=== PATIENT | male | born 1965 | race Caucasian/White ===

== ENCOUNTER 2023-09-19 12:32 | Emergency (ER) | payer OTHER, SELFPAY ==
[2023-09-19 13:13] VITALS: BP 174/102; PULSE 68; TEMP 36.9; O2SAT 100; BMI 28.1
--- NOTE | 2023-09-19 17:19 | ED_ITS ---
HPI HPI - General Adult General Chief complaint: Recheck/Abnormal Lab/Rx Stated complaint: HIGH BLOOD PRESSURE Time Seen by Provider: 09/19/23 16:30 Source: patient Mode of arrival: walk-in History of Present Illness HPI narrative: Patient is a 58-year-old male who is presenting to the ER today with chief complaint of needing a medication refill of his lisinopril 20 mg.Patient was given almost a year prescription back in August of last year lisinopril 20 mg, 1 tablet Once a day and also metoprolol 50 mg,1 tablet once a day. Patient is here for medication refill because he cannot get his medication refilled or prescribed by anybody. Patient PCP was Dr. Jimenez.Patient says that Dr. Jimenez in the last year moved his practice to [place] and patient cannot go see him in [place].Patient is very upset with Dr. Jimenez also stating that he left his practice with no warning and no information.Patient has had multiple refills of his blood pressure medication.However patient has run out of his lisinopril 2 0 mg a month ago.Patient still has 7 days left of his [id number] mg tablet prescription.Patient says that he went to Dr. Callejas's office today trying to establish care since they have had his paperwork for the past 2 weeks and not reached out to him.When he was in the office, they stated that they would give him a call in a few hours.They did call him and stated that they cannot see the patient with his insurance.Patient has had a year to Who is next PCP would be.Patient has not done so until now. Patient was not aware he could see the health department. Patient states he has intermittent headaches which he relates to blood pressure. Patient's headache was not the worse headache of her life, not sudden onset, not thunderclap in nature. He is not having any chest pain, shortness of breath, or syncopal episodes. Patient does not want any testing done, he just wants a prescription for his lisinopril 20 mg.Patient does not want any CAT scan of the brain, lab work done, EKGs.Patient has a functional decision-making capacity to refuse any other care, he just wants a prescription for his blood pressure medication. Patient is that this is not appropriate to come to the ER For medication refills, he brought this to multiple himself, But he does not know what else to do to get his refills since nobody also given to them. All systems are negative except as noted/marked. All systems reviewed and otherwise negative. Nurses note and vital signs reviewed and patient is not hypoxic. General: The patient appears well and in no apparent distress. Patient is resting comfortably on cart. Patient is not toxic, lethargic, or listless Skin: Warm, dry, no pallor noted. There is no rash noted. No petechiae, purpura. Head: Normocephalic, atraumatic, No tenderness to palpation to bilateral frontal maxillary sinus.No tenderness to palpation to midline or paracervical soft tissue, full range of motion of cervical spine no difficulty. No meningeal signs or symptoms. Eye: Normal conjunctiva, no drainage, EOMI. PERRL Ears, Nose, Mouth, and Throat: oral mucosa is moist. Nares patent. Mouth without vesicles. Cardiovascular: Regular Rate and Rhythm, no murmur, gallop, rub Respiratory: Patient is in no distress, no accessory muscle use, lungs are clear to auscultation, no wheezing, rales or rhonchi Back: non-tender, no CVA tenderness bilaterally to percussion. No CT LS midline pain GI: no tenderness No pulsatile mass. Musculoskeletal: Patient has full range of motion of all of the extremities, no motor, sensory, or focal neurological deficits Neurological: A&O x4, normal speech Psychiatric: Cooperative; Agitated secondary to his situation that he is run out of blood pressure medication. Related Data Home Medications ?Medication ?Instructions ?Recorded ?Confirmed lisinopril 20 mg tablet 20 mg PO DAILY 09/19/23 09/19/23 metoprolol succinate 50 mg 50 mg PO DAILY 09/19/23 09/19/23 tablet,extended release 24 hr Allergies Allergy/AdvReac Type Severity Reaction Status Date / Time No Known Drug Allergies Allergy Verified 09/19/23 13:19 Opioid HPI Opioid Management Most Recent Opioid Data: No Data to Display Exam Constitutional Vital Signs, click to edit/add: Last Vital Signs Temp 98.5 F 09/19/23 13:13 Pulse 68 09/19/23 13:13 Resp 16 09/19/23 13:13 BP 174/102 H 09/19/23 13:13 Pulse Ox 100 09/19/23 13:13 O2 Del Method Room Air 09/19/23 13:13 Course Vital Signs Vital signs: Vital Signs Temperature 98.5 F 09/19/23 13:13 Pulse Rate 68 09/19/23 13:13 Respiratory Rate 16 09/19/23 13:13 Blood Pressure 174/102 H 09/19/23 13:13 Pulse Oximetry 100 09/19/23 13:13 Oxygen Delivery Method Room Air 09/19/23 13:13 Temperature 98.5 F 09/19/23 13:13 Pulse Rate 68 09/19/23 13:13 Respiratory Rate 16 09/19/23 13:13 Blood Pressure 174/102 H 09/19/23 13:13 Pulse Oximetry 100 09/19/23 13:13 Oxygen Delivery Method Room Air 09/19/23 13:13 Medical Decision Making MDM Narrative Medical decision making narrative: Patient was given 20-day supply of his lisinopril 20 mg tablets, 1 tablet once a day and his metoprolol 50 mg tablets, 1 tablet once a day. Patient was educated to go to the health department in [place] to establish medical care.Patient was also told to call his insurance to see what 3 physicians in the local area will see him with his insurance. Patient says that he has [employer] [facility] insurance. Patient has no severe headache. No chest pain, shortness of breath, or syncopal episodes recently.Patient is refusing all care, medical screening evaluation was done.Patient wants no other testing, he just wants blood pressure medication refill and is very thankful for help. Discharge Plan Discharge Stand Alone Forms: Portal Instructions Chief Complaint: Recheck/Abnormal Lab/Rx Clinical Impression: Hypertension, uncontrolled, Medication refill Patient Disposition: Home, Self-Care Time of Disposition Decision: 17:09 Condition: Fair Prescriptions / Home Meds: No Action lisinopril 20 mg tablet 20 mg PO DAILY metoprolol succinate 50 mg tablet extended release 24 hr 50 mg PO DAILY Print Language: Turkish Instructions: Hypertension (ED), Medicine Refill (ED) Additional Instructions: Medication refill has been given to you for 20 days. Go to the health department to see if you qualify to be seen and evaluated by the health department in [facility]. Call your medical insurance to see what 3 physicians are in your plan so that you may go to their office to see if you can be seen evaluated and be a new patient in their office as well Referrals: Physician,Non-Staff, MD [Primary Care Provider] - 1 week Discharge Date/Time: 09/19/23 17:24
== END 2023-09-19 17:24 | disposition home or self-care (01) ==
PROVIDERS: Emergency Provider Emergency Medicine
DX: Z76.0 Encounter for issue of repeat prescription (principal); I10 Essential (primary) hypertension; Z79.899 Other long term (current) drug therapy
CPT/HCPCS: 99283

== ENCOUNTER 2024-03-29 08:48 | Outpatient (OUT) | payer OTHER, SELFPAY ==
--- NOTE | 2024-03-29 08:56 | US_ITS ---
The [address] [address] Patient Name: OSMAR RODRIGUEZ MRN: [id number] date: 1965 Sex: M Assigned Patient Location: [place] Current Patient Location: Accession/Order Number: [id number] Exam Date: 03/29/2024 08:57 Report Date: 03/29/2024 09:23 At the request of: NON-STAFF PHYSICIAN Procedure: US chest EXAM: US chest HISTORY: Lump COMPARISON: None. TECHNIQUE: Real-time ultrasound imaging of the fat. Findings: Deep to the patient's palpable abnormality is a heterogeneous 12.4 x 1.7 x 10.7 cm lesion. No significant blood flow. US/US chest IMPRESSION: 1. Sonographic findings suggest a possible lipoma. If clinical findings are not consistent with a lipoma or there has been rapid increase in size or new pain in this area, recommend further characterization with MR without and with intravenous contrast. Electronically authenticated by: CHEIKH LOPEZ Date: 03/29/2024 09:23
--- OUTSIDE RECORDS SUMMARY | 2024-03-29 09:04 | XMS_ITS | CCD ---
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 Name Role Phone HOUSE, DR LIMON Primary Care Unavailable CORTES, DR GALILEA Coppola Admitting Unavailabl e REINECK, DR GALILEA Coppola Attending Unavailabl e HANSECK, DR GALILEA Coppola Consulting Unavailabl e HOUSE, DR LIMON Admitting Unavailable HOUSE, DR LIMON Attending Unavailable HOUSE, DR LIMON Primary Care Unavailable HOUSE, DR LIMON Consulting Unavailable GOLDIE, IVAN Primary Care Unavailable Problems Problem Classification Problem Date Documented Da te Episodic/Chronic Fluid and electrolyte disorders (1 source) Volume depletion, unspecified; Translations: [VOLUME DEPLETION UNSPECIFIED] Onset: 04-27-2022 Episodic Other aftercare (1 source) 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; Translations: [OTH MCC CURRENT DRUG THERAPY] Onset: 04-27-2022 Episodic Other gastrointestinal disorders (1 source) Diarrhea, unspecified; Translations: [DIARRHEA UNSPECIFIED] Onset: 04-27-2022 Episodic Screening and history of mental health and substance abuse codes (1 source) Personal history of nicotine dependence; Translations: [PERSONAL HISTORY OF NICOTINE DEPEND] Onset: 04-27-2022 Episodic Syncope (3 sources) Syncope and collapse; Translations: [SYNCOPE AND COLLAPSE] Onset: 04-24-2022 Episodic Results Test Name Value Interpretation Reference Range Facil ity CBC AUTO DIFFon 05-12-2022 BASO # 0.1 103/ul Normal 0.0-0.1 [facility] Comment on above: Performed By: #### C BC #### [facility] [address] [address] [address] Rosi Delacruz Basophils/100 WBC (Bld) 0.8 % Normal 0.2-2.0 [facility] Comment on above: Performed By: #### C BC #### [facility] [address] [place], [place] [address] Dr. Rosi Delacruz EO # 0.2 103/ul Normal 0.0-0.7 [facility] Comment on above: Performed By: #### C BC #### [facility] [address] [place] [address] Dr. Rosi Delacruz Eosinophils/100 WBC (Bld) 2.4 % Normal 0.9-7.0 [facility] Comment on above: Performed By: #### C BC #### [facility] [address] [place] [address] Dr. Rosi Delacruz Erythrocyte distribution width (RBC) [Ratio] 13.2 % Normal 11.0-15.0 [facility] Comment on above: Performed By: #### C BC #### [facility] [address] [place] [address] Dr. Rosi Delacruz Hematocrit (Bld) [Volume fraction] 43.4 % Normal 42.0-54.0 [facility] Comment on above: Performed By: #### C BC #### [facility] [address] [place] [address] Dr. Rosi Delacruz Hemoglobin (Bld) [Mass/Vol] 14.0 g/dL Normal 14.0-18.0 [facility] Comment on above: Performed By: #### C BC #### [facility] [address] [place] [address] Dr. Rosi Delacruz IG # 0.02 10e3/ul Normal 0.00-0.03 [facility] Comment on above: Performed By: #### C BC #### [facility] [address] [place] [address] Dr. Rosi Delacruz IG % 0.3 % Normal 0.0-0.5 [facility] Comment on above: Performed By: #### C BC #### [facility] [address] [place] [address] Dr. Rosi Delacruz LYMPH # 1.7 103/ul Normal 1.2-3.8 [facility] Comment on above: Performed By: #### C BC #### [facility] [address] [place] [address] Dr. Rosi Delacruz Lymphocytes/100 WBC (Bld) 27.3 % Normal 20.5-60.0 [facility] Comment on above: Performed By: #### C BC #### [facility] [address] [place] [address] Dr. Rosi Delacruz MANUAL DIFF REQ NO Normal [facility] Comment on above: Performed By: #### C BC #### [facility] [address] [place] [address] Dr. Rosi Delacruz MCH (RBC) [Entitic mass] 32.5 pg Normal 25.9-34.0 [facility] Comment on above: Performed By: #### C BC #### [facility] [address] [place] [address] Dr. Rosi Delacruz MCHC (RBC) [Mass/Vol] 32.3 g/dL Normal 29.9-35.2 [facility] Comment on above: Performed By: #### C BC #### [facility] [address] [place] [address] Dr. Rosi Delacruz MCV (RBC) [Entitic vol] 100.7 fL Critically high 80.0-94.0 [facility] Comment on above: Performed By: #### C BC #### [facility] [address] [place] [address] Dr. Rosi Delacruz MONO # 0.5 103/ul Normal 0.3-0.8 [facility] Comment on above: Performed By: #### C BC #### [facility] [address] [place] [address] Dr. Rosi Delacruz Monocytes/100 WBC (Bld) 7.6 % Normal 1.7-12.0 [facility] Comment on above: Performed By: #### C BC #### [facility] [address] [place] [address] Dr. Rosi Delacruz NEUT # 3.8 103/ul Normal 1.4-6.5 [facility] Comment on above: Performed By: #### C BC #### [facility] [address] [place] [address] Dr. Rosi Delacruz Neutrophils/100 WBC (Bld) 61.6 % Normal 43.0-75.0 [facility] Comment on above: Performed By: #### C BC #### [facility] [address] [address] [address] Rosi Delacruz Platelet mean volume (Bld) [Entitic vol] 11.2 fL Normal 9.5-13.5 [facility] Comment on above: Performed By: #### C BC #### [facility] [address] [place] [address] Dr. Rosi Delacruz PLT 198 103/ul Normal 150-450 [facility] Comment on above: Performed By: #### C BC #### [facility] [address] [address] [address] Rosi Delacruz RBC 4.31 106/ul Critically low 4.70-6.10 [facility] Comment on above: Performed By: #### C BC #### [facility] [address] [place] [address] Dr. Rosi Delacruz WBC 6.2 103/ul Normal 4.0-11.0 [facility] Comment on above: Performed By: #### C BC #### [facility] [address] [place] [address] Dr. Rosi Delacruz LIPID PROFILEon 05-12-2022 CHOL-HDL RATIO NORM SEE BELOW Normal [facility] Comment on above: Result Comment: 3.3 - 4.4 LOW RISK 4.4 - 7.1 AVERAGE RISK 7.1 - 11.0 MODERATE RISK >11.0 HIGH RISK Performed By: #### C MP, T4, LIPID, TSH #### [facility] [address] [place] [address] Dr. Rosi Delacruz Cholesterol [Mass/Vol] 171 mg/dL Normal <=200 [facility] Comment on above: Performed By: #### C MP, T4, LIPID, TSH #### [facility] [address] [place] [address] Dr. Rosi Delacruz Cholesterol in HDL [Mass/Vol] 37 mg/dL Critically low 40-60 [facility] Comment on above: Performed By: #### C MP, T4, LIPID, TSH #### [facility] [address] [address] [address] Rosi Delacruz Cholesterol in LDL [Mass/Vol] 106.0 mg/dL Normal [facility] Comment on above: Performed By: #### C MP, T4, LIPID, TSH #### [facility] [address] [address] [address] Rosi Delacruz Cholesterol.total/Ch olesterol in HDL [Mass ratio] 4.6 {ratio} Normal [facility] Comment on above: Performed By: #### C MP, T4, LIPID, TSH #### [facility] [address] [address] [address] Rosi Delacruz HDL NORMAL > or = 60 mg/dl - LOW CARDIOVASCULAR RISK <40 mg/dl - HIGH CARDIOVASCULAR RISK Normal [facility] Comment on above: Performed By: #### C MP, T4, LIPID, TSH #### [facility] [address] [place] [address] Dr. Rosi Delacruz LDL CALC NORMAL SEE BELOW Normal [facility] Comment on above: Result Comment: <100 mg/dl OPTIMAL 100 - 129 mg/dl NEAR OR ABOVE OPTIMAL 130 - 159 mg/dl BORDERLINE HIGH 160 - 189 mg/dl HIGH >190 mg/dl VERY HIGH Performed By: #### C MP, T4, LIPID, TSH #### [facility] [address] [place] [address] Dr. Rosi Delacruz Triglyceride [Mass/Vol] 140 mg/dL Normal <=150 [facility] Comment on above: Performed By: #### C MP, T4, LIPID, TSH #### [facility] [address] [place] [address] Dr. Rosi Delacruz VLDL CALC 28.0 mg/dL Normal [facility] Comment on above: Performed By: #### C MP, T4, LIPID, TSH #### [facility] [address] [address] [address] Rosi Delacruz PROF 14(COMP METB)on 023 Albumin [Mass/Vol] 3.8 g/dL Normal 3.4-5.0 [facility] Comment on above: Performed By: #### C MP, T4, LIPID, TSH #### [facility] [address] [address] [address] Rosi Delacruz Albumin/Globulin [Mass ratio] 1.2 {ratio} Normal [facility] Comment on above: Performed By: #### C MP, T4, LIPID, TSH #### [facility] [address] [address] [address] Rosi Delacruz ALP [Catalytic activity/Vol] 96 U/L Normal 46-116 [facility] Comment on above: Performed By: #### C MP, T4, LIPID, TSH #### [facility] [address] [address] [address] Rosi Delacruz ALT [Catalytic activity/Vol] 79 U/L Critically high 16-63 [facility] Comment on above: Performed By: #### C MP, T4, LIPID, TSH #### [facility] [address] [place] [address] Dr. Rosi Delacruz Anion gap [Moles/Vol] 14.4 mmol/L Normal [facility] Comment on above: Performed By: #### C MP, T4, LIPID, TSH #### [facility] [address] [address] [address] Rosi Delacruz AST [Catalytic activity/Vol] 29 U/L Normal 15-37 [facility] Comment on above: Performed By: #### C MP, T4, LIPID, TSH #### [facility] [address] [address] [address] Rosi Delacruz Bilirubin [Mass/Vol] 0.4 mg/dL Normal 0.2-1.0 [facility] Comment on above: Performed By: #### C MP, T4, LIPID, TSH #### [facility] [address] [address] [address] Rosi Delacruz Calcium [Mass/Vol] 8.7 mg/dL Normal 8.5-10.1 [facility] Comment on above: Performed By: #### C MP, T4, LIPID, TSH #### [facility] [address] [address] [address] Rosi Delacruz Chloride [Moles/Vol] 108 mmol/L Critically high 98-107 [facility] Comment on above: Performed By: #### C MP, T4, LIPID, TSH #### [facility] [address] [address] [address] Rosi Delacruz CO2 [Moles/Vol] 28.1 mmol/L Normal 21.0-32.0 [facility] Comment on above: Performed By: #### C MP, T4, LIPID, TSH #### [facility] [address] [place] [address] Dr. Rosi Delacruz Creatinine [Mass/Vol] 1.02 mg/dL Normal 0.70-1.30 [facility] Comment on above: Performed By: #### C MP, T4, LIPID, TSH #### [facility] [address] [place] [address] Dr. Rosi Delacruz EGFR-AF TUNISIAN >60 Normal >=60 [facility] Comment on above: Performed By: #### C MP, T4, LIPID, TSH #### [facility] [address] [place] [address] Dr. Rosi Delacruz EGFR-NON AF TUNISIAN >60 Normal >=60 [facility] Comment on above: Performed By: #### C MP, T4, LIPID, TSH #### [facility] [address] [place] [address] Dr. Rosi Delacruz Globulin (S) [Mass/Vol] 3.2 g/dL Normal [facility] Comment on above: Performed By: #### C MP, T4, LIPID, TSH #### [facility] [address] [place] [address] Dr. Rosi Delacruz Glucose [Mass/Vol] 113 mg/dL Critically high 74-106 [facility] Comment on above: Performed By: #### C MP, T4, LIPID, TSH #### [facility] [address] [place] [address] Dr. Rosi Delacruz Potassium [Moles/Vol] 4.5 mmol/L Normal 3.5-5.1 [facility] Comment on above: Performed By: #### C MP, T4, LIPID, TSH #### [facility] [address] [place] [address] Dr. Rosi Delacruz Protein [Mass/Vol] 7.0 g/dL Normal 6.4-8.2 [facility] Comment on above: Performed By: #### C MP, T4, LIPID, TSH #### [facility] [address] [place] [address] Dr. Rosi Delacruz Sodium [Moles/Vol] 146 mmol/L Critically high 136-145 [facility] Comment on above: Performed By: #### C MP, T4, LIPID, TSH #### [facility] [address] [place] [address] Dr. Rosi Delacruz Urea nitrogen [Mass/Vol] 17.0 mg/dL Normal 7.0-18.0 [facility] Comment on above: Performed By: #### C MP, T4, LIPID, TSH #### [facility] [address] [place] [address] Dr. Rosi Delacruz Urea nitrogen/Creatinine [Mass ratio] 16.7 mg/mg Normal [facility] Comment on above: Performed By: #### C MP, T4, LIPID, TSH #### [facility] [address] [place] [address] Dr. Rosi Delacruz T4on 05-12-2022 T4 [Mass/Vol] 8.20 ug/dL Normal 4.50-12.10 [facility] Comment on above: Performed By: #### C MP, HSTROPN, BNP #### [facility] [address] [place] [address] Dr. Rosi Delacruz TSHon 05-12-2022 TSH 2.270 uIU/mL Normal 0.358-3.740 [facility] Comment on above: Performed By: #### C MP, T4, LIPID, TSH #### [facility] [address] [place] [address] Dr. Rosi Delacruz BNPon 04-24-2022 Natriuretic peptide B (Bld) [Mass/Vol] 14.0 pg/mL Normal <=900.0 [facility] Comment on above: Performed By: #### C MP, HSTROPN, BNP #### [facility] [address] [place] [address] Dr. Rosi Delacruz CBC AUTO DIFFon 04-24-2022 BASO # 0.0 103/ul Normal 0.0-0.1 [facility] Comment on above: Performed By: #### C BC #### [facility] [address] [place] [address] Dr. Rosi Delacruz Basophils/100 WBC (Bld) 0.5 % Normal 0.2-2.0 [facility] Comment on above: Performed By: #### C BC #### [facility] [address] [place] [address] Dr. Rosi Delacruz EO # 0.0 103/ul Normal 0.0-0.7 [facility] Comment on above: Performed By: #### C BC #### [facility] [address] [place] [address] Dr. Rosi Delacruz Eosinophils/100 WBC (Bld) 0.2 % Critically low 0.9-7.0 [facility] Comment on above: Performed By: #### C BC #### [facility] [address] [place] [address] Dr. Rosi Delacruz Erythrocyte distribution width (RBC) [Ratio] 13.0 % Normal 11.0-15.0 [facility] Comment on above: Performed By: #### C BC #### [facility] [address] [place] [address] Dr. Rosi Delacruz Hematocrit (Bld) [Volume fraction] 46.1 % Normal 42.0-54.0 [facility] Comment on above: Performed By: #### C BC #### [facility] [address] [place] [address] Dr. Rosi Dleacruz Hemoglobin (Bld) [Mass/Vol] 15.9 g/dL Normal 14.0-18.0 [facility] Comment on above: Performed By: #### C BC #### [facility] [address] [place] [address] Dr. Rosi Delacruz IG # 0.01 10e3/ul Normal 0.00-0.03 [facility] Comment on above: Performed By: #### C BC #### [facility] [address] [place] [address] Dr. Rosi Delacruz IG % 0.2 % Normal 0.0-0.5 [facility] Comment on above: Performed By: #### C BC #### [facility] [address] [place] [address] Dr. Rosi Delacruz LYMPH # 0.9 103/ul Critically low 1.2-3.8 [facility] Comment on above: Performed By: #### C BC #### [facility] [address] [place] [address] Dr. Rosi Delacruz Lymphocytes/100 WBC (Bld) 21.9 % Normal 20.5-60.0 [facility] Comment on above: Performed By: #### C BC #### [facility] [address] [place] [address] Dr. Rosi Delacruz MANUAL DIFF REQ NO Normal [facility] Comment on above: Performed By: #### C BC #### [facility] [address] [place] [address] Dr. Rosi Delacruz MCH (RBC) [Entitic mass] 32.0 pg Normal 25.9-34.0 [facility] Comment on above: Performed By: #### C BC #### [facility] [address] [place] [address] Dr. Rosi Delacruz MCHC (RBC) [Mass/Vol] 34.5 g/dL Normal 29.9-35.2 [facility] Comment on above: Performed By: #### C BC #### [facility] [address] [place] [address] Dr. Rosi Delacruz MCV (RBC) [Entitic vol] 92.8 fL Normal 80.0-94.0 [facility] Comment on above: Performed By: #### C BC #### [facility] [address] [place] [address] Dr. Rosi Delacruz MONO # 0.5 103/ul Normal 0.3-0.8 [facility] Comment on above: Performed By: #### C BC #### [facility] [address] [place] [address] Dr. Rosi Delacruz Monocytes/100 WBC (Bld) 13.2 % Critically high 1.7-12.0 [facility] Comment on above: Performed By: #### C BC #### [facility] [address] [place] [address] Dr. Rosi Delacruz NEUT # 2.6 103/ul Normal 1.4-6.5 [facility] Comment on above: Performed By: #### C BC #### [facility] [address] [place] [address] Dr. Rosi Delacruz Neutrophils/100 WBC (Bld) 64.0 % Normal 43.0-75.0 [facility] Comment on above: Performed By: #### C BC #### [facility] [address] [place] [address] Dr. Rosi Delacruz Platelet mean volume (Bld) [Entitic vol] 11.5 fL Normal 9.5-13.5 [facility] Comment on above: Performed By: #### C BC #### [facility] [address] [place] [address] Dr. Rosi Delacruz PLT 160 103/ul Normal 150-450 [facility] Comment on above: Performed By: #### C BC #### [facility] [address] [place] [address] Dr. Rosi Delacruz RBC 4.97 106/ul Normal 4.70-6.10 [facility] Comment on above: Performed By: #### C BC #### [facility] [address] [place] [address] Dr. Rosi Delacruz WBC 4.0 103/ul Normal 4.0-11.0 [facility] Comment on above: Performed By: #### C BC #### [facility] [address] [place] [address] Dr. Rosi Delacruz D-DIMERon 04-24-2022 D-DIMER <0.19 Normal <=0.59 [facility] Comment on above: Performed By: #### D DIM #### [facility] [address] [place] [address] Dr. Rosi Delacruz D-DIMER COMMENTS SEE BELOW Normal [facility] Comment on above: Result Comment: Incr eases in D-Dimer concentration observed with thromboembolic events can be variable due to localization, size, and age of the thrombus. Therefore, a thromboembolic event cannot be diagnosed with certainty on the basis of the reference range. D-Dimers may also be elevated for a variety of disorders including: advanced age, , coronary disease, cancer, liver disease, infection, inflammation, hematoma, DIC, trauma, post-surgery, diabetes, thrombolytic or anticoagulant therapy, stress, and generalized hospitalization. Performed By: #### D DIM #### [facility] [address] [place] [address] Dr. Rosi Delacruz LACTATE/LACTIC ACIDon 2022 Lactate [Moles/Vol] 1.7 mmol/L Normal 0.4-1.9 [facility] Comment on above: Performed By: #### C MP, HSTROPN, BNP #### [facility] [address] [place] [address] Dr. Rosi Delacruz PROF 14(COMP METB)on 023 Albumin [Mass/Vol] 4.1 g/dL Normal 3.4-5.0 [facility] Comment on above: Performed By: #### C MP, HSTROPN, BNP #### [facility] [address] [place] [address] Dr. Rosi Delacruz Albumin/Globulin [Mass ratio] 1.2 {ratio} Normal [facility] Comment on above: Performed By: #### C MP, HSTROPN, BNP #### [facility] [address] [place] [address] Dr. Rosi Delacruz ALP [Catalytic activity/Vol] 96 U/L Normal 46-116 [facility] Comment on above: Performed By: #### C MP, HSTROPN, BNP #### [facility] [address] [place] [address] Dr. Rosi Delacruz ALT [Catalytic activity/Vol] 75 U/L Critically high 16-63 [facility] Comment on above: Performed By: #### C MP, HSTROPN, BNP #### [facility] [address] [address] [address] Rosi Delacruz Anion gap [Moles/Vol] 14.8 mmol/L Normal [facility] Comment on above: Performed By: #### C MP, HSTROPN, BNP #### [facility] [address] [address] [address] Rosi Delacruz AST [Catalytic activity/Vol] 39 U/L Critically high 15-37 [facility] Comment on above: Performed By: #### C MP, HSTROPN, BNP #### [facility] [address] [address] [address] Rosi Delacruz Bilirubin [Mass/Vol] 0.5 mg/dL Normal 0.2-1.0 [facility] Comment on above: Performed By: #### C MP, HSTROPN, BNP #### [facility] [address] [place] [address] Dr. Rosi Delacruz Calcium [Mass/Vol] 8.9 mg/dL Normal 8.5-10.1 [facility] Comment on above: Performed By: #### C MP, HSTROPN, BNP #### [facility] [address] [address] [address] Rosi Delarcuz Chloride [Moles/Vol] 103 mmol/L Normal 98-107 [facility] Comment on above: Performed By: #### C MP, HSTROPN, BNP #### [facility] [address] [address] [address] Rosi Delacruz CO2 [Moles/Vol] 25.0 mmol/L Normal 21.0-32.0 [facility] Comment on above: Performed By: #### C MP, HSTROPN, BNP #### [facility] [address] [address] [address] Rosi Delacruz Creatinine [Mass/Vol] 1.25 mg/dL Normal 0.70-1.30 [facility] Comment on above: Performed By: #### C MP, HSTROPN, BNP #### [facility] [address] [address] [address] Rosi Delacruz EGFR-AF TUNISIAN >60 Normal >=60 [facility] Comment on above: Performed By: #### C MP, HSTROPN, BNP #### [facility] [address] [place] [address] Dr. Rosi Delacruz EGFR-NON AF TUNISIAN 60 mL/min/1.73m2 Normal >=60 [facility] Comment on above: Performed By: #### C MP, HSTROPN, BNP #### [facility] [address] [place] [address] Dr. Rosi Delacruz Globulin (S) [Mass/Vol] 3.4 g/dL Normal [facility] Comment on above: Performed By: #### C MP, HSTROPN, BNP #### [facility] [address] [place] [address] Dr. Rosi Delacruz Glucose [Mass/Vol] 151 mg/dL Critically high 74-106 [facility] Comment on above: Performed By: #### C MP, HSTROPN, BNP #### [facility] [address] [place] [address] Dr. Rosi Delacruz Potassium [Moles/Vol] 3.8 mmol/L Normal 3.5-5.1 [facility] Comment on above: Performed By: #### C MP, HSTROPN, BNP #### [facility] [address] [place] [address] Dr. Rosi Delacruz Protein [Mass/Vol] 7.5 g/dL Normal 6.4-8.2 [facility] Comment on above: Performed By: #### C MP, HSTROPN, BNP #### [facility] [address] [place] [address] Dr. Rosi Delacruz Sodium [Moles/Vol] 139 mmol/L Normal 136-145 [facility] Comment on above: Performed By: #### C MP, HSTROPN, BNP #### [facility] [address] [place] [address] Dr. Rosi Delacruz Urea nitrogen [Mass/Vol] 22.0 mg/dL Critically high 7.0-18.0 [facility] Comment on above: Performed By: #### C MP, HSTROPN, BNP #### [facility] [address], [place] [address] Dr. Rosi Delacruz Urea nitrogen/Creatinine [Mass ratio] 17.6 mg/mg Normal [facility] Comment on above: Performed By: #### C MP, HSTROPN, BNP #### [facility] [address], [place] [address] Dr. Rosi Delacruz TROPONIN, HIGH SENSITIVITYon 04-24-2022 HSTROP 8.5 pg/mL Normal 4.0-76.1 [facility] Comment on above: Result Comment: CUT- OFF POINTS HAVE BEEN ESTABLISHED BASED ON THE FOURTH UNIVERSAL DEFINITIONS OF MYOCARDIAL INFARCTION. THE UPPER REFERENCE LIMIT (URL) OF TROPONIN, DEFINED THE 99TH PERCENTILE OF cTnI DISTRIBUTION IN A REFERENCE POPULATION, HAS BEEN CONFIRMED THE DECISION THRESHOLD FOR IA DIAGNOSIS. Performed By: #### C MP, HSTROPN, BNP #### [facility] [address] [address] [address] Rosi Delacruz Encounters Encounter Date Encounter Type Care Provider Facility Start: 03-22-2024 [facility] Start: 05-15-2022 Encounter for genera l adult medical examination without abnormal findings DR BRAXTON BOWLES [facility] Start: 05-12-2022 End: 05-13-[address] BRAXTON BOWLES Facility:[facility] Start: 05-12-2022 End: 05-13-2022 Encounter for general adult medical examination without abnormal findings DR BRAXTON BOWLES Facility:[facility] Start: 04-24-2022 End: 04-24-[address] BRAXTON BOWLES Facility:[facility] Procedures Date Procedure Procedure Detail Performing Clinician Start: 05-12-[address] RICARDO BOWLES Comment on above: Performed By: #### P SAD #### [facility] [id number] Rosi Delacruz Payers Date Payer Category Payer Unknown [id number] 1965 Unknown [id number] 1957 Unknown [id number] Summary Purpose Family History No Family History Records FoundNo Family History Records Found Advance Directives No Advanced Directives Records FoundNo Advanced Directives Records Found Additional Source Comments (unrecognized sect ion and content) No Status Records FoundNo Status Records Found INFORMATION SOURCE (unrecogn ized section and content) DATE CREATED AUTHOR 05/20/2022 [facility] DATE CREATED AUTHOR AUTHOR'S ORGANIZ ATION 03/25/2024 [facility] FOR RECORDS PERTAINING TO PATIENTS WHO ARE OR HAVE BEEN ENROLLED IN A CHEMICAL DEPENDENCY/SUBSTANCEABUSE PROGRAM, SOME INFORMATION MAY BE OMITTED. This clinical summary was aggregated from multiple sources. Caution should be exercised in using it in the provision of clinical care. This summary normalizes information from multiple sources, and as a consequence, information in this document may materially change the coding, format and clinical context of patient data. In addition, data may be omitted in some cases. CLINICAL DECISIONS SHOULD BE BASED ON THE PRIMARY CLINICAL RECORDS. [facility] [employer] [facility] provides no warranty or guarantee of the accuracy or completeness of information in this document.
== END 2024-03-29 08:49 | disposition home or self-care (01) ==
LOC: US 08:50
DX: R22.9 Localized swelling, mass and lump, unspecified (principal)
CPT/HCPCS: 76604

== ENCOUNTER 2024-05-04 07:50 | Outpatient (OUT) | payer OTHER, SELFPAY ==
--- OUTSIDE RECORDS SUMMARY | 2024-05-04 07:55 | XMS_ITS | CCD ---
Author Organization [facility] Care Team Providers Care Dress Finisher Name Role Phone HOUSE, DR LIMON Primary Care Unavailable REINECK, DR GALILEA Coppola Admitting Unavailabl e REINECK, DR GALILEA Coppola Attending Unavailabl e REINECK, DR GALILEA Coppola Consulting Unavailabl e HOUSE, DR LIMON Admitting Unavailable HOUSE, DR LIMON Attending Unavailable HOUSE, DR LIMON Primary Care Unavailable HOUSE, DR LIMON Consulting Unavailable GOLDIE, IVAN Primary Care Physician G[facility], [facility] Primary Care Unavailable GOLDIE, [facility] Referring Unavailable NILL, Alo Cox Attending Unavailable GOLDIE, [facility] Primary Care Unavailable Allergies Allergy Classification Reported Allergen(s) Allergy Type Date of Onset Reaction(s) Facility (1 source) No Known Medication Allergies; Translations: [No Known Medication Allergies] Propensity to adverse reactions (disorder) [facility] Repository Medications Current Medications Medication Drug Class(es) Dates Sig (Normalized) Sig (Original) lisinopril 20 mg oral tablet (1 source) Angiotensin Converting Enzyme Inhibitor Start: 09-19-2023 take 1 tablet by mouth once daily lisinopril 20 mg Tab 20 mg = 1 tab(s), Oral, Daily, Refills(s) 0 Start Date: 09/19/23 Status: Ordered 24 hr metoprolol succinate 50 mg extended release oral tablet (1 source) beta-Adrenergic Divya Start: 09-19-2023 take 1 tablet by mouth once daily metoprolol succinate 50 mg ER Tab 50 mg = 1 tab(s), Oral, Daily, Refills(s) 0 Start Date: 09/19/23 Status: Ordered Problems Problem Classification Problem Date Documented Da te Episodic/Chronic Essential hypertension (1 source) Hypertensive disorder 04-16-2024 Chronic Fluid and electrolyte disorders (1 source) Volume depletion, unspecified; Translations: [VOLUME DEPLETION UNSPECIFIED] Onset: 04-27-2022 Episodic Other aftercare (1 source) Other jail (current) drug therapy; Translations: [OTH ALF CURRENT DRUG THERAPY] Onset: 04-27-2022 Episodic Other and unspecified benign neoplasm (1 source) Lipoma of skin and subcutaneous tissue of trunk; Translations: [Benign lipomatous neoplasm of skin and subcutaneous tissue of trunk] Onset: 04-25-2024 Episodic Other and unspecified benign neoplasm (1 source) Lipoma of back 04-25-2024 Episodic Other gastrointestinal disorders (1 source) Diarrhea, unspecified; Translations: [DIARRHEA UNSPECIFIED] Onset: 04-27-2022 Episodic Other nutritional; endocrine; and metabolic disorders (1 source) Overweight 04-16-2024 Episodic Other nutritional; endocrine; and metabolic disorders (1 source) Overweight in adulthood with body mass index of 25 or more but less than 30 04-25-2024 Episodic Residual codes; unclassified (1 source) Pain, unspecified; Translations: [Pain, unspecified] Onset: 04-11-2024 Episodic Screening and history of mental health and substance abuse codes (1 source) Personal history of nicotine dependence; Translations: [PERSONAL HISTORY OF NICOTINE DEPEND] Onset: 04-27-2022 Episodic Syncope (3 sources) Syncope and collapse; Translations: [SYNCOPE AND COLLAPSE] Onset: 04-24-2022 Episodic Results Test Name Value Interpretation Reference Range Facil ity Ambulatory Visit Summaryon 0 04-25-2024 Ambulatory Visit Summary Ambulatory Visit Summary OSMAR RODRIGUEZ :1965 Visit Date:04/25/2024 Ambulatory Visit Instructions Your Diagnosis Lipoma of back Your Care Team Attending Physician - TENZIN MAGALLON, Alo Cox Primary Care Physician - IVAN WITT Referring Physician - IVAN WITT This Is Your Medications List Contact prescribing physician if questions or concerns lisinopril (lisinopril 20 mg Tab) metoprolol (metoprolol succinate 50 mg ER Tab) Procedures Performed Arthroscopy of shoulder, Cholecystectomy, Colonoscopy, Colonoscopy, Colonoscopy, Vasectomy. Discharge Vitals Heart Rate (Peripheral) 72 Respiratory Rate 16 Blood Pressure 142/90 Height 182.8 cm Height 72 in Weight 97.6 kg Weight 215.171 lb BMI 29.21 Medications What How Much When Instructions Unchanged lisinopril (lisinopril 20 mg Tab) 1 Tablets By Mouth Every day Contact prescribing physician if questions or concerns Unchanged metoprolol (metoprolol succinate 50 mg ER Tab) 1 Tablets By Mouth Every day Contact prescribing physician if questions or concerns Allergies No Known Allergies No Known Medication Allergies Problems Ongoing - Any problem that you are currently receiving treatment for. BMI 29.0-29.9,adult Hypertension Lipoma of back Overweight Patient Survey You may receive a survey via text or e-mail asking about your office visit. Please share your experience with us by completing your survey. We appreciate your feedback and thank you for choosing us for your care. [facility] Ambulatory Visit Summary Ambulatory Visit Summary OSMAR RODRIGUEZ :1965 Visit Date:04/25/2024 Ambulatory Visit Instructions Your Diagnosis Lipoma of back Your Care Team Attending Physician - TENZIN MAGALLON, Alo Cox Primary Care Physician - IVAN WITT Referring Physician - IVAN WITT This Is Your Medications List Contact prescribing physician if questions or concerns lisinopril (lisinopril 20 mg Tab) metoprolol (metoprolol succinate 50 mg ER Tab) Procedures Performed Arthroscopy of shoulder, Cholecystectomy, Colonoscopy, Colonoscopy, Colonoscopy, Vasectomy. Discharge Vitals Heart Rate (Peripheral) 72 Respiratory Rate 16 Blood Pressure 142/90 Height 182.8 cm Height 72 in Weight 97.6 kg Weight 215.171 lb BMI 29.21 Medications What How Much When Instructions Unchanged lisinopril (lisinopril 20 mg Tab) 1 Tablets By Mouth Every day Contact prescribing physician if questions or concerns Unchanged metoprolol (metoprolol succinate 50 mg ER Tab) 1 Tablets By Mouth Every day Contact prescribing physician if questions or concerns Allergies No Known Allergies No Known Medication Allergies Problems Ongoing - Any problem that you are currently receiving treatment for. BMI 29.0-29.9,adult Hypertension Lipoma of back Overweight Patient Survey You may receive a survey via text or e-mail asking about your office visit. Please share your experience with us by completing your survey. We appreciate your feedback and thank you for choosing us for your care. [facility] CBC AUTO DIFFon 05-12-2022 BASO # 0.1 103/ul Normal 0.0-0.1 [facility] Comment on above: Performed By: #### C BC #### [facility] [address] [place] [address] Dr. Rosi Delacruz Basophils/100 WBC (Bld) 0.8 % Normal 0.2-2.0 [facility] Comment on above: Performed By: #### C BC #### [facility] [address] [place] [address] Dr. Rosi Delacruz EO # 0.2 103/ul Normal 0.0-0.7 [facility] Comment on above: Performed By: #### C BC #### [facility] [address] [place] [address] Dr. Rosi Delacruz Eosinophils/100 WBC (Bld) 2.4 % Normal 0.9-7.0 [facility] Comment on above: Performed By: #### C BC #### [facility] [address] [place] [address] Dr. Rosi Delacruz Erythrocyte distribution width (RBC) [Ratio] 13.2 % Normal 11.0-15.0 [facility] Comment on above: Performed By: #### C BC #### [facility] [address] [place] [address] Dr. Rosi Delacruz Hematocrit (Bld) [Volume fraction] 43.4 % Normal 42.0-54.0 [facility] Comment on above: Performed By: #### C BC #### [facility] [address] [place] [address] Dr. Rosi Delacruz Hemoglobin (Bld) [Mass/Vol] 14.0 g/dL Normal 14.0-18.0 [facility] Comment on above: Performed By: #### C BC #### [facility] [address] [place] [address] Dr. Rosi Delacruz IG # 0.02 10e3/ul Normal 0.00-0.03 [facility] Comment on above: Performed By: #### C BC #### [facility] [address] [place] [address] Dr. Rosi Delacruz IG % 0.3 % Normal 0.0-0.5 [facility] Comment on above: Performed By: #### C BC #### [facility] [address] [address] [address] Rosi Delacruz LYMPH # 1.7 103/ul Normal 1.2-3.8 [facility] Comment on above: Performed By: #### C BC #### [facility] [address] [address] [address] Rosi Delacruz Lymphocytes/100 WBC (Bld) 27.3 % Normal 20.5-60.0 [facility] Comment on above: Performed By: #### C BC #### [facility] [address] [place] [address] Dr. Rosi Delacruz MANUAL DIFF REQ NO Normal [facility] Comment on above: Performed By: #### C BC #### [facility] [address] [place] [address] Dr. Rosi Delacruz MCH (RBC) [Entitic mass] 32.5 pg Normal 25.9-34.0 [facility] Comment on above: Performed By: #### C BC #### [facility] [address] [place] [address] Dr. Rosi Delacruz MCHC (RBC) [Mass/Vol] 32.3 g/dL Normal 29.9-35.2 [facility] Comment on above: Performed By: #### C BC #### [facility] [address] [place] [address] Dr. Rosi Delacruz MCV (RBC) [Entitic vol] 100.7 fL Critically high 80.0-94.0 [facility] Comment on above: Performed By: #### C BC #### [facility] [address] [place] [address] Dr. Rosi Delacruz MONO # 0.5 103/ul Normal 0.3-0.8 [facility] Comment on above: Performed By: #### C BC #### [facility] [address] [place] [address] Dr. Rosi Delacruz Monocytes/100 WBC (Bld) 7.6 % Normal 1.7-12.0 [facility] Comment on above: Performed By: #### C BC #### [facility] [address] [address] [address] Rosi Delacruz NEUT # 3.8 103/ul Normal 1.4-6.5 [facility] Comment on above: Performed By: #### C BC #### [facility] [address] [address] [address] Rosi Delacruz Neutrophils/100 WBC (Bld) 61.6 % Normal 43.0-75.0 [facility] Comment on above: Performed By: #### C BC #### [facility] [address] [address] [address] Rois Delacruz Platelet mean volume (Bld) [Entitic vol] 11.2 fL Normal 9.5-13.5 [facility] Comment on above: Performed By: #### C BC #### [facility] [address] [place] [address] Dr. Rosi Delacruz PLT 198 103/ul Normal 150-450 [facility] Comment on above: Performed By: #### C BC #### [facility] [address] [place] [address] Dr. Rosi Delacruz RBC 4.31 106/ul Critically low 4.70-6.10 [facility] Comment on above: Performed By: #### C BC #### [facility] [address] [place] [address] Dr. Rosi Delacruz WBC 6.2 103/ul Normal 4.0-11.0 [facility] Comment on above: Performed By: #### C BC #### [facility] [address] [place] [address] Dr. Rosi Delacruz LIPID PROFILEon 05-12-2022 CHOL-HDL RATIO NORM SEE BELOW Normal [facility] Comment on above: Result Comment: 3.3 - 4.4 LOW RISK 4.4 - 7.1 AVERAGE RISK 7.1 - 11.0 MODERATE RISK >11.0 HIGH RISK Performed By: #### C MP, T4, LIPID, TSH #### [facility] [address] [place] [address] Dr. Rosi Delacruz Cholesterol [Mass/Vol] 171 mg/dL Normal <=200 [facility] Comment on above: Performed By: #### C MP, T4, LIPID, TSH #### [facility] [address] [address] [address] Rosi Delacruz Cholesterol in HDL [Mass/Vol] 37 mg/dL Critically low 40-60 [facility] Comment on above: Performed By: #### C MP, T4, LIPID, TSH #### [facility] [address] [address] [address] Rosi Delacruz Cholesterol in LDL [Mass/Vol] 106.0 mg/dL Normal [facility] Comment on above: Performed By: #### C MP, T4, LIPID, TSH #### [facility] [address] [address] [address] Rosi Delacruz Cholesterol.total/Ch olesterol in HDL [Mass ratio] 4.6 {ratio} Normal [facility] Comment on above: Performed By: #### C MP, T4, LIPID, TSH #### [facility] [address] [address] [address] Rosi Delacruz HDL NORMAL > or = 60 mg/dl - LOW CARDIOVASCULAR RISK <40 mg/dl - HIGH CARDIOVASCULAR RISK Normal [facility] Comment on above: Performed By: #### C MP, T4, LIPID, TSH #### [facility] [address] [address] [address] Rosi Delacruz LDL CALC NORMAL SEE BELOW Normal [facility] Comment on above: Result Comment: <100 mg/dl OPTIMAL 100 - 129 mg/dl NEAR OR ABOVE OPTIMAL 130 - 159 mg/dl BORDERLINE HIGH 160 - 189 mg/dl HIGH >190 mg/dl VERY HIGH Performed By: #### C MP, T4, LIPID, TSH #### [facility] [address] [address] [address] Rosi Delacruz Triglyceride [Mass/Vol] 140 mg/dL Normal <=150 [facility] Comment on above: Performed By: #### C MP, T4, LIPID, TSH #### [facility] [address] [address] [address] Rosi Delacruz VLDL CALC 28.0 mg/dL Normal [facility] Comment on above: Performed By: #### C MP, T4, LIPID, TSH #### [facility] [address] [place] [address] Dr. Rosi Delacruz PROF 14(COMP METB)on 023 Albumin [Mass/Vol] 3.8 g/dL Normal 3.4-5.0 [facility] Comment on above: Performed By: #### C MP, T4, LIPID, TSH #### [facility] [address] [place] [address] Dr. Rosi Delacruz Albumin/Globulin [Mass ratio] 1.2 {ratio} Normal [facility] Comment on above: Performed By: #### C MP, T4, LIPID, TSH #### [facility] [address] [place] [address] Dr. Rosi Delacruz ALP [Catalytic activity/Vol] 96 U/L Normal 46-116 [facility] Comment on above: Performed By: #### C MP, T4, LIPID, TSH #### [facility] [address] [place] [address] Dr. Rosi Delacruz ALT [Catalytic activity/Vol] 79 U/L Critically high 16-63 [facility] Comment on above: Performed By: #### C MP, T4, LIPID, TSH #### [facility] [address] [place] [address] Dr. Rosi Delacruz Anion gap [Moles/Vol] 14.4 mmol/L Normal [facility] Comment on above: Performed By: #### C MP, T4, LIPID, TSH #### [facility] [address] [place] [address] Dr. Rosi Delacruz AST [Catalytic activity/Vol] 29 U/L Normal 15-37 [facility] Comment on above: Performed By: #### C MP, T4, LIPID, TSH #### [facility] [address] [place] [address] Dr. Rosi Delacruz Bilirubin [Mass/Vol] 0.4 mg/dL Normal 0.2-1.0 [facility] Comment on above: Performed By: #### C MP, T4, LIPID, TSH #### [facility] [address] [place] [address] Dr. Rosi Delacruz Calcium [Mass/Vol] 8.7 mg/dL Normal 8.5-10.1 [facility] Comment on above: Performed By: #### C MP, T4, LIPID, TSH #### [facility] [address] [address] [address] Rosi Delacruz Chloride [Moles/Vol] 108 mmol/L Critically high 98-107 [facility] Comment on above: Performed By: #### C MP, T4, LIPID, TSH #### [facility] [address] [place] [address] Dr. Rosi Delacruz CO2 [Moles/Vol] 28.1 mmol/L Normal 21.0-32.0 [facility] Comment on above: Performed By: #### C MP, T4, LIPID, TSH #### [facility] [address] [place] [address] Dr. Rosi Delacruz Creatinine [Mass/Vol] 1.02 mg/dL Normal 0.70-1.30 [facility] Comment on above: Performed By: #### C MP, T4, LIPID, TSH #### [facility] [address] [place] [address] Dr. Rosi Delacruz EGFR-AF AFGHAN >60 Normal >=60 [facility] Comment on above: Performed By: #### C MP, T4, LIPID, TSH #### [facility] [address] [place] [address] Dr. Rosi Delacruz EGFR-NON AF AFGHAN >60 Normal >=60 [facility] Comment on above: Performed By: #### C MP, T4, LIPID, TSH #### [facility] [address] [place] [address] Dr. Rosi Delacruz Globulin (S) [Mass/Vol] 3.2 g/dL Normal [facility] Comment on above: Performed By: #### C MP, T4, LIPID, TSH #### [facility] [address] [place] [address] Dr. Rosi Delacruz Glucose [Mass/Vol] 113 mg/dL Critically high 74-106 [facility] Comment on above: Performed By: #### C MP, T4, LIPID, TSH #### [facility] [address] [address] [address] Rosi Delacruz Potassium [Moles/Vol] 4.5 mmol/L Normal 3.5-5.1 [facility] Comment on above: Performed By: #### C MP, T4, LIPID, TSH #### [facility] [address] [place] [address] Dr. Rosi Delacruz Protein [Mass/Vol] 7.0 g/dL Normal 6.4-8.2 [facility] Comment on above: Performed By: #### C MP, T4, LIPID, TSH #### [facility] [address] [place] [address] Dr. Rosi Delacruz Sodium [Moles/Vol] 146 mmol/L Critically high 136-145 [facility] Comment on above: Performed By: #### C MP, T4, LIPID, TSH #### [facility] [address] [place] [address] Dr. Rosi Delacruz Urea nitrogen [Mass/Vol] 17.0 mg/dL Normal 7.0-18.0 [facility] Comment on above: Performed By: #### C MP, T4, LIPID, TSH #### [facility] [address] [place] [address] Dr. Rosi Delacruz Urea nitrogen/Creatinine [Mass ratio] 16.7 mg/mg Normal [facility] Comment on above: Performed By: #### C MP, T4, LIPID, TSH #### [facility] [address] [place] [address] Dr. Rosi Delacruz T4on 05-12-2022 T4 [Mass/Vol] 8.20 ug/dL Normal 4.50-12.10 [facility] Comment on above: Performed By: #### C MP, HSTROPN, BNP #### [facility] [address] [place] [address] Dr. Rosi Delacruz TSHon 05-12-2022 TSH 2.270 uIU/mL Normal 0.358-3.740 [facility] Comment on above: Performed By: #### C MP, T4, LIPID, TSH #### [facility] [address] [place] [address] Dr. Rosi Delacruz BNPon 04-24-2022 Natriuretic peptide B (Bld) [Mass/Vol] 14.0 pg/mL Normal <=900.0 [facility] Comment on above: Performed By: #### C MP, HSTROPN, BNP #### [facility] [address] [place] [address] Dr. Rosi Delacruz CBC AUTO DIFFon 04-24-2022 BASO # 0.0 103/ul Normal 0.0-0.1 [facility] Comment on above: Performed By: #### C BC #### [facility] [address] [place] [address] Dr. Rosi Delacruz Basophils/100 WBC (Bld) 0.5 % Normal 0.2-2.0 [facility] Comment on above: Performed By: #### C BC #### [facility] [address] [place] [address] Dr. Rosi Delacruz EO # 0.0 103/ul Normal 0.0-0.7 [facility] Comment on above: Performed By: #### C BC #### [facility] [address] [place] [address] Dr. Rosi Delacruz Eosinophils/100 WBC (Bld) 0.2 % Critically low 0.9-7.0 [facility] Comment on above: Performed By: #### C BC #### [facility] [address] [place] [address] Dr. Rosi Delacruz Erythrocyte distribution width (RBC) [Ratio] 13.0 % Normal 11.0-15.0 [facility] Comment on above: Performed By: #### C BC #### [facility] [address] [place] [address] Dr. Rosi Delacruz Hematocrit (Bld) [Volume fraction] 46.1 % Normal 42.0-54.0 [facility] Comment on above: Performed By: #### C BC #### [facility] [address] [place] [address] Dr. Rosi Delacruz Hemoglobin (Bld) [Mass/Vol] 15.9 g/dL Normal 14.0-18.0 [facility] Comment on above: Performed By: #### C BC #### [facility] [address] [place] [address] Dr. Rosi Delacruz IG # 0.01 10e3/ul Normal 0.00-0.03 [facility] Comment on above: Performed By: #### C BC #### [facility] [address] [place] [address] Dr. Rosi Delacruz IG % 0.2 % Normal 0.0-0.5 [facility] Comment on above: Performed By: #### C BC #### [facility] [address] [place] [address] Dr. Rosi Delacruz LYMPH # 0.9 103/ul Critically low 1.2-3.8 [facility] Comment on above: Performed By: #### C BC #### [facility] [address] [place] [address] Dr. Rosi Delacruz Lymphocytes/100 WBC (Bld) 21.9 % Normal 20.5-60.0 [facility] Comment on above: Performed By: #### C BC #### [facility] [address] [place] [address] Dr. Rosi Delacruz MANUAL DIFF REQ NO Normal [facility] Comment on above: Performed By: #### C BC #### [facility] [address] [place] [address] Dr. Rosi Delacruz MCH (RBC) [Entitic mass] 32.0 pg Normal 25.9-34.0 [facility] Comment on above: Performed By: #### C BC #### [facility] [address] [place] [address] Dr. Rosi Delacruz MCHC (RBC) [Mass/Vol] 34.5 g/dL Normal 29.9-35.2 [facility] Comment on above: Performed By: #### C BC #### [facility] [address] [place] [address] Dr. Rosi Delacruz MCV (RBC) [Entitic vol] 92.8 fL Normal 80.0-94.0 [facility] Comment on above: Performed By: #### C BC #### [facility] [address] [address] [address] Rosi Delacruz MONO # 0.5 103/ul Normal 0.3-0.8 [facility] Comment on above: Performed By: #### C BC #### [facility] [address] [address] [address] Rosi Delacruz Monocytes/100 WBC (Bld) 13.2 % Critically high 1.7-12.0 [facility] Comment on above: Performed By: #### C BC #### [facility] [address] [address] [address] Rosi Delacruz NEUT # 2.6 103/ul Normal 1.4-6.5 [facility] Comment on above: Performed By: #### C BC #### [facility] [address] [place] [address] Dr. Rosi Delacruz Neutrophils/100 WBC (Bld) 64.0 % Normal 43.0-75.0 [facility] Comment on above: Performed By: #### C BC #### [facility] [address] [place] [address] Dr. Rosi Delacruz Platelet mean volume (Bld) [Entitic vol] 11.5 fL Normal 9.5-13.5 [facility] Comment on above: Performed By: #### C BC #### [facility] [address] [place] [address] Dr. Rosi Delacruz PLT 160 103/ul Normal 150-450 [facility] Comment on above: Performed By: #### C BC #### [facility] [address] [place] [address] Dr. Rosi Delacruz RBC 4.97 106/ul Normal 4.70-6.10 [facility] Comment on above: Performed By: #### C BC #### [facility] [address] [place] [address] Dr. Rosi Delacruz WBC 4.0 103/ul Normal 4.0-11.0 [facility] Comment on above: Performed By: #### C BC #### [facility] [address] [place] [address] Dr. Rosi Delacruz D-DIMERon 04-24-2022 D-DIMER <0.19 Normal <=0.59 [facility] Comment on above: Performed By: #### D DIM #### [facility] [address] [place] [address] Dr. Rosi Delacruz D-DIMER COMMENTS SEE BELOW Normal [facility] Comment on above: Result Comment: Incr eases [...] hospitalization. Performed By: #### D DIM #### [facility] [address] [place] [address] Dr. Rosi Delacruz LACTATE/LACTIC ACIDon 2022 Lactate [Moles/Vol] 1.7 mmol/L Normal 0.4-1.9 [facility] Comment on above: Performed By: #### C MP, HSTROPN, BNP #### [facility] [address] [place] [address] Dr. Rosi Delacruz PROF 14(COMP METB)on 023 Albumin [Mass/Vol] 4.1 g/dL Normal 3.4-5.0 [facility] Comment on above: Performed By: #### C MP, HSTROPN, BNP #### [facility] [address] [place] [address] Dr. Rosi Delacruz Albumin/Globulin [Mass ratio] 1.2 {ratio} Normal [facility] Comment on above: Performed By: #### C MP, HSTROPN, BNP #### [facility] [address] [place] [address] Dr. Rosi Delacruz ALP [Catalytic activity/Vol] 96 U/L Normal 46-116 [facility] Comment on above: Performed By: #### C MP, HSTROPN, BNP #### [facility] [address] [address] [address] Rosi Delacruz ALT [Catalytic activity/Vol] 75 U/L Critically high 16-63 [facility] Comment on above: Performed By: #### C MP, HSTROPN, BNP #### [facility] [address] [place] [address] Dr. Rosi Delacruz Anion gap [Moles/Vol] 14.8 mmol/L Normal [facility] Comment on above: Performed By: #### C MP, HSTROPN, BNP #### [facility] [address] [address] [address] Rosi Delacruz AST [Catalytic activity/Vol] 39 U/L Critically high 15-37 [facility] Comment on above: Performed By: #### C MP, HSTROPN, BNP #### [facility] [address] [place] [address] Dr. Rosi Delacruz Bilirubin [Mass/Vol] 0.5 mg/dL Normal 0.2-1.0 [facility] Comment on above: Performed By: #### C MP, HSTROPN, BNP #### [facility] [address] [place] [address] Dr. Rosi Delacruz Calcium [Mass/Vol] 8.9 mg/dL Normal 8.5-10.1 [facility] Comment on above: Performed By: #### C MP, HSTROPN, BNP #### [facility] [address] [address] [address] Rosi Delacruz Chloride [Moles/Vol] 103 mmol/L Normal 98-107 [facility] Comment on above: Performed By: #### C MP, HSTROPN, BNP #### [facility] [address] [place] [address] Dr. Rosi Delacruz CO2 [Moles/Vol] 25.0 mmol/L Normal 21.0-32.0 [facility] Comment on above: Performed By: #### C MP, HSTROPN, BNP #### [facility] [address] [place], [place] [id number] Dr. Rosi Delacruz Creatinine [Mass/Vol] 1.25 mg/dL Normal 0.70-1.30 [facility] Comment on above: Performed By: #### C MP, HSTROPN, BNP #### [facility] [address] [address] [address] Rosi Delacruz EGFR-AF AFGHAN >60 Normal >=60 [facility] Comment on above: Performed By: #### C MP, HSTROPN, BNP #### [facility] [address] [place] [address] Dr. Rosi Delacruz EGFR-NON AF AFGHAN 60 mL/min/1.73m2 Normal >=60 [facility] Comment on above: Performed By: #### C MP, HSTROPN, BNP #### [facility] [address] [place] [address] Dr. Rosi Delacruz Globulin (S) [Mass/Vol] 3.4 g/dL Normal [facility] Comment on above: Performed By: #### C MP, HSTROPN, BNP #### [facility] [address] [place] [address] Dr. Rosi Delacruz Glucose [Mass/Vol] 151 mg/dL Critically high 74-106 [facility] Comment on above: Performed By: #### C MP, HSTROPN, BNP #### [facility] [address] [place] [address] Dr. Rosi Delacruz Potassium [Moles/Vol] 3.8 mmol/L Normal 3.5-5.1 [facility] Comment on above: Performed By: #### C MP, HSTROPN, BNP #### [facility] [address] [place] [address] Dr. Rosi Delacruz Protein [Mass/Vol] 7.5 g/dL Normal 6.4-8.[address] [facility] Comment on above: Performed By: #### C MP, HSTROPN, BNP #### [facility] [address] [place] [address] Dr. Rosi Delacruz Sodium [Moles/Vol] 139 mmol/L Normal 136-145 [facility] Comment on above: Performed By: #### C MP, HSTROPN, BNP #### [facility] [address] [address] [address] Rosi Delacruz Urea nitrogen [Mass/Vol] 22.0 mg/dL Critically high 7.0-18.0 [facility] Comment on above: Performed By: #### C MP, HSTROPN, BNP #### [facility] [address] [address] [address] Rosi Delacruz Urea nitrogen/Creatinine [Mass ratio] 17.6 mg/mg Normal [facility] Comment on above: Performed By: #### C MP, HSTROPN, BNP #### [facility] [address] [place] [address] Dr. Rosi Delacruz TROPONIN, HIGH SENSITIVITYon 04-24-2022 HSTROP 8.5 pg/mL Normal 4.0-76.1 [facility] Comment on above: Result Comment: CUT- OFF POINTS HAVE BEEN ESTABLISHED BASED ON THE FOURTH UNIVERSAL DEFINITIONS OF MYOCARDIAL INFARCTION. THE UPPER REFERENCE LIMIT (URL) OF TROPONIN, DEFINED THE 99TH PERCENTILE OF cTnI DISTRIBUTION IN A REFERENCE POPULATION, HAS BEEN CONFIRMED THE DECISION THRESHOLD FOR ME DIAGNOSIS. Performed By: #### C MP, HSTROPN, BNP #### [facility] [address] [place] [address] Dr. Rosi Delacruz Vital Signs Date Time Vital Sign Value Performing Clinician Cary hatfield 04-25-2024 15:33-0500 Blood Pressure Location Alo DAVE [facility] [place] 04-25-2024 15:33-0500 Diastolic blood pressure 90 mm[Hg] Alo DAVE [facility] [place] 04-25-2024 15:33-0500 Heart rate 72 /min Alo DAVE [facility] [place] 04-25-2024 15:33-0500 Respiratory rate 16 /min Alo DAVE [facility] 04-25-2024 15:33-0500 Systolic blood pressure 142 mm[Hg] Alo NILL [facility] Encounters Encounter Date Encounter Type Care Provider Facility Start: 04-25-2024 End: 04-25-2024 ambulatory IVAN GOLDIE Facility:[facility] Start: 04-25-2024 End: 04-25-2024 Patient encounter procedure Aol Brooke NILL [facility] Start: 04-11-[address] [facility] Start: 03-22-2024 ambulatory IVAN GOLDIE Facility:[facility] Start: 05-15-2022 Encounter for genera l adult medical examination without abnormal findings DR BRAXTON BOWLES [facility] Start: 05-12-2022 End: 05-13-[address] BRAXTON BOWLES Facility:[facility] Start: 05-12-2022 End: 05-13-2022 Encounter for general adult medical examination without abnormal findings DR BRAXTON BOWLES Facility:[facility] Start: 04-24-2022 End: 04-24-[address] BRAXTON BOWLES Facility:[facility] Procedures Date Procedure Procedure Detail Performing Clinician Start: 05-12-[address] RICARDO BOWLES Comment on above: Performed By: #### P SAD #### [facility] [address] [place] [address] Dr. Rosi Delacruz Arthroscopy of shoulder Martin aeargelia NILL Cholecystectomy Alo NILL Colonoscopy Alo NILL Vasectomy Alo NILL Immunizations Immunization Date Immunization Notes Care Provider Fa gaby 03-10-2021 SARS-CoV-2 (COVID-19 ) mRNA BNT-162b2 vax Alo NILL [facility] 07-22-2020 SARS-CoV-2 (COVID-19 ) mRNA BNT-162b2 vax Alo NILL [facility] [place] 06-30-2020 SARS-CoV-2 (COVID-19 ) mRNA BNT-162b2 eugene DAVE [facility] [place] Payers Date Payer Category Payer Unknown [id number] 1965 Unknown [id number] 1965 Unknown [id number] 1957 Unknown [id number] Unknown [id number] Social History Date Type Detail Facility Start: 04-25-2024 Tobacco smoking status Ex-smoker (fi nding) [facility] Tobacco smoking status Never Fis[facility] [place] Sex Assigned At Male [facility] Functional Status Date Assessment Result Facility 04-25-2024 Functional Status N/A [facility] [place] Clinical Note 04-25-2024 Note Date & Type Note Facility 04-25-2024 Note General Surgery Offi ce/Clinic Note Chief Complaint consultation for lipoma HPI Staff 58 year old male presents on consultation from Dr. Witt for lipoma. Reports noting mass to right lower back several years ago. Verbalized gradual increase in size. Reports occasional soreness/tenderness when pressure applied. US completed 03/29/24 with possible lipoma. History of Present Illness 58 yo male with h/o htn, referred for possible lipoma of right lower back; increasing in size; some discomfort with pressure to area; no asa or NSAID use; no tobacco use; no h/o other similar lesions in past. Review of Systems PHQ Score Initial Depression Screen Score: 0 SCORE ROS - Provider Constitutional: no fever, no sweats, no weight loss. Eyes: no glasses, no blurred vision, no visual loss. ENMT: no dentures, no hoarseness, no swallowing difficulties, no hearing loss, no ear infection(s), no nose bleeds. Cardiovascular: normal blood pressure, no chest pain, regular heartbeat, no heart murmur. Respiratory: no shortness of breath, no cough, no asthma, no wheezing. Gastrointestinal: no nausea, no vomiting, no diarrhea, no constipation, no blood in stool, no change in bowel habits, no abdominal pain, no hepatitis. Genitourinary: no kidney stones, no urine infection, no dysuria. Musculoskeletal: no pain, no weakness. Skin: no changing moles, no rash, no skin lumps. Neurologic: no seizures, no epilepsy, no headache. Psychiatric: no emotional or psychiatric problem. Heme/Lymph: no bleeding problems, no anemia, no blood clots, no transfusions. Allergy/Immunologic: no swollen lymph nodes/glands, no IV drug abuse. Other: Additional ROS info: Except as noted in the above Review of Systems and in the History of Present Illness, all other systems have been reviewed and are negative or noncontributory. Physical Exam Vitals & Measurements HR: 72(Peripheral) RR: 16 BP: 142/90 HT: 72 in HT: 182.8 cm WT: 97.6 kg WT: 215.171 lb BMI: 29.21 HEENT: normal conjunctiva, sclera clear, no scleral icterus, EOM intact, PERRLA, oral mucosa moist without lesions. Neck: trachea midline, no mass, symmetric, no thyromegaly or nodules, no adenopathy Respiratory: lungs CTA, respirations non labored. Cardiovascular: regular rate and rhythm, no murmur, no pedal edema or varicosities. Gastrointestinal: soft, non distended, no tenderness, no masses, no palpable hernias, diastasis recti no, no hepatosplenomegaly; normal bs Lymphatic: no cervical adenopathy, no supraclavicular adenopathy. Musculoskeletal: normal gait, digits and nails without infection, nodes, cyanosis, clubbing. Skin: no rashes, no lesions, no ulcers, right lower back/flank with 15 x 10 cm subcutaneous nodule, soft, nontender,no skin changes Psychiatric/Neuro: oriented to time, place, person, judgement normal, affect appropriate for age, insight intact, no focal deficits. Tests: labs reviewed, x-rays reviewed, review of old records completed , Discussed surgical options, risks, and possible complications with patient. Assessment/Plan 1. Lipoma of back (D17.1: Benign lipomatous neoplasm of skin and subcutaneous tissue of trunk) plan excisional biopsy under general anesthesia for definitive diagnosis and treatment; informed consent obtained. Ancef 2 gms IV prior to OR SCDs Follow-up No qualifying data available Problem List/Past Medical History Ongoing BMI 29.0-29.9,adult Hypertension Lipoma of back Overweight Historical No qualifying data Procedure/Surgical History Arthroscopy of shoulder, Cholecystectomy, Colonoscopy, Colonoscopy, Colonoscopy, Vasectomy. Medications lisinopril 20 mg Tab, 20 mg= 1 tab(s), Oral, Daily metoprolol succinate 50 mg ER Tab, 50 mg= 1 tab(s), Oral, Daily Allergies No Known Allergies No Known Medication Allergies Social History Alcohol Current, Beer, Wine, Liquor, 1-2 times per week, 04/25/2024 Substance Abuse Current, Marijuana, Daily, 04/25/2024 Tobacco Former smoker, quit more than 30 days ago Tobacco Use:. Never Smokeless Tobacco Use:. Cigarettes, 1 per day. Started age 12.0 Years. Stopped age 32 Years., 04/25/2024 Family History Diabetes mellitus type 2: Mother. Heart disease: Father. Hypertension: Mother, Father and Sister. Immunizations Vaccine Date Status SARS-CoV-2 (COVID-19) mRNA BNT-162b2 vax 03/10/2021 Recorded SARS-CoV-2 (COVID-19) mRNA BNT-162b2 vax 07/22/2020 Recorded SARS-CoV-2 (COVID-19) mRNA BNT-162b2 vax 06/30/2020 Recorded [facility] Comment on above: Result Comment: Elec tronically Signed By: TENZIN MAGALLON, Alo Charles\Date and Time Signed: 04/25/24 16:02 EST Evaluation + Plan note Note Date & Type Note Facility Evaluation + Plan note No data available for this section [facility] [place] [facility] Discharge instructions Note Date & Type Note Facility Hospital Discharge instructions No data available for this section [facility] [place] Progress note Note Date & Type Note Facility Progress note No data available for this section [facility] [place] Summary Purpose Family History No Family History Records FoundNo Family History Records Found No data available for this section No Family History Records Found Advance Directives No Advanced Directives Records FoundNo Advanced Directives Records FoundNo Advanced Directives Records Found Additional Source Comments (unrecognized sect ion and content) No Status Records FoundNo Status Records FoundNo Status Records Found INFORMATION SOURCE (unrecogn ized section and content) DATE CREATED AUTHOR 05/20/2022 [facility] DATE CREATED AUTHOR AUTHOR'S ORGANIZ ATION 04/13/2024 [facility] DATE CREATED AUTHOR AUTHOR'S ORGANIZ ATION 04/28/2024 [facility] Patient Care team informatio n (unrecognized section and content) Personnel Name: IVAN WITT Address: Address: [address] [place] [address] [place] [address] FOR RECORDS PERTAINING TO PATIENTS WHO ARE [...] BE BASED ON THE PRIMARY CLINICAL RECORDS. [facility] [employer] [facility] provides no warranty or guarantee of the accuracy or completeness of information in this document.
--- NOTE | 2024-05-04 08:03 | ECG_ITS ---
The [facility] Test Date: 2024-05-04 Pat Name: OSMAR RODRIGUEZ Department: Room: - Gender: Male [employer]: : 1965 Requested By: ALEXANDER DAVE Order Number: [id number] Reading MD: JACOB MIR Measurements Intervals [place] Rate: 71 P: 33 HI: 143 QRS: 59 QRSD: 93 T: 48 QT: 361 QTc: 395 Interpretive Statements SINUS RHYTHM Compared to ECG 04/24/2022 09:03:26 No significant changes Electronically Signed On 05-06-2024 8:05:46 EST by JACOB MIR
--- NOTE | 2024-05-04 08:03 | XR_ITS ---
The [address] [address] Patient Name: OSMAR RODRIGUEZ MRN: [id number] date: 1965 Sex: M Assigned Patient Location: [facility] Current Patient Location: [facility] Accession/Order Number: [id number] Exam Date: 05/04/2024 08:45 Report Date: 05/04/2024 09:40 At the request of: ALEXANDER DAVE Procedure: XR chest 2V EXAMINATION: XR chest 2V HISTORY: Preop exam COMPARISON: No relevant comparison available. TECHNIQUE: PA and lateral FINDINGS: LUNGS: No significant pulmonary parenchymal abnormalities. VASCULATURE: No increased pulmonary vasculature. PLEURA: No pneumothorax, effusion, or pleural thickening. CARDIAC: No cardiomegaly or cardiac silhouette abnormality. MEDIASTINUM: No visible mass or adenopathy. BONES: No fracture or visible bone lesion. OTHER: Negative. XR/XR chest 2V IMPRESSION: No acute cardiopulmonary process Electronically authenticated by: TRE FITZPATRICK Date: 05/04/2024 09:40
== END 2024-05-04 07:51 | disposition home or self-care (01) ==
LOC: PST 07:51
PROVIDERS: Visit Provider Surgery
DX: Z01.810 Encounter for preprocedural cardiovascular examination (principal); D17.1 Benign lipomatous neoplasm of skin and subcutaneous tissue of trunk
CPT/HCPCS: 71046; 93005

== ENCOUNTER 2024-05-16 08:27 | Day surgery (SDC) | payer OTHER, SELFPAY ==
[2024-05-04 08:14] VITALS: PULSE 72; TEMP 36.4; O2SAT 99; BMI 29.1
[2024-05-16] VITALS (8 sets, daily range): BP systolic 122–154; BP diastolic 74–86; PULSE 65–86; TEMP 36.2–36.4; O2SAT 95–100; BMI 28.3
--- NOTE | 2024-05-16 | OP_ITS ---
OPERATION DATE: 05/16/2024 PREOPERATIVE DIAGNOSIS: Enlarging lipoma right flank. POSTOPERATIVE DIAGNOSIS: Intramuscular lipoma right flank. PROCEDURE: Excisional biopsy intramuscular lipoma of the right flank, approximately 10 x 12 cm. SURGEON: Alo Kim M.D. ANESTHESIA: General endotracheal as well as local 0.5% Marcaine plain. ESTIMATED BLOOD LOSS: Less than 5 mL. INDICATIONS AND CONSENT: Patient is a 58-year-old male with a long history of greater than 10 years of an enlarging lipoma of the right flank that has become increasingly symptomatic. Indications, risks, benefits, alternatives of proceeding with excisional biopsy under anesthesia were explained extensively to the patient, including the risks of bleeding, infection, scarring, pain, recurrence, need for further surgery or anesthetic complications. All of his questions were answered. Informed consent was obtained. PROCEDURE: Patient brought to the operating room, placed in the supine position. General anesthesia was induced. He was then placed in the left lateral decubitus position and appropriately padded and monitored. He was prepped and draped in the usual sterile fashion. An oblique incision was made in the area of the skin crease overlying the long axis of the lipoma and carried down to subcutaneous tissue using sharp dissection as well as electrocautery. Lipoma was noted to be below the latissimus muscle. The fascia was incised and the muscle was split along the direction of its fibers in order to gain access to the lipoma. It was sitting just above the rib cage. This was carefully mobilized using sharp and blunt dissection, as well as some electrocautery. It was completely mobilized. It was approximately 10 x 12 cm. It was sent off to Pathology. The wound was then copiously irrigated. There was no evidence of residual lipoma noted. There was good hemostasis. The fascia was re- approximated using 3-0 Monocryl sutures, and the subcutaneous tissue was re- approximated using interrupted 3-0 Monocryl suture. The skin was then closed with a running 4-0 subcuticular Monocryl suture. Dermabond glue was applied, as well as Benzoin and Steri-Strips and a sterile pressure dressing. Sponge and needle counts were correct x3 per nursing personnel. Patient tolerated procedure well, was flipped back into the supine position, extubated and sent to recovery room in condition. CC: Patient?s family physician NEYMAR
--- OUTSIDE RECORDS SUMMARY | 2024-05-16 08:46 | XMS_ITS | CCD ---
Author Organization [facility] Care Team Providers Care Fleet Operations Manager Name Role Phone HOUSE, DR LIMON Primary Care Unavailable REINECK, DR GALILEA Coppola Admitting Unavailabl e REINECK, DR GALILEA Coppola Attending Unavailabl e REINECK, DR GALILEA Coppola Consulting Unavailabl e HOUSE, DR LIMON Admitting Unavailable HOUSE, DR LIMON Attending Unavailable HOUSE, DR LIMON Primary Care Unavailable HOUSE, DR LIMON Consulting Unavailable GOLDIE, IVAN Primary Care Physician GOLDIE, [facility] Primary Care Unavailable GOLDIE, [facility] Referring Unavailable NILL, Alo Cox Attending Unavailable GOLDIE, [facility] Primary Care Unavailable Allergies Allergy Classification Reported Allergen(s) Allergy Type Date of Onset Reaction(s) Facility (1 source) No Known Medication Allergies; Translations: [No Known Medication Allergies] Propensity to adverse reactions (disorder) [facility] Repository Medications Current Medications Medication [...] 04-27-2022 Episodic Other aftercare (1 source) Other assisted (current) drug therapy; Translations: [OTH PENITENTIARY CURRENT DRUG THERAPY] Onset: 04-27-2022 Episodic Other [...] you for choosing us for your care. [facility] Ambulatory Visit Summary Ambulatory Visit [...] you for choosing us for your care. [facility] CBC AUTO DIFFon 05-12-2022 BASO # 0.1 103/ul Normal 0.0-0.1 [facility] Comment on above: Performed By: #### C BC #### [facility] [address] [place] [address] Dr. Rosi Delacruz Basophils/100 WBC (Bld) 0.8 % Normal 0.2-2.0 [facility] Comment on above: Performed By: #### C BC #### [facility] [address] [place] [address] Dr. Rosi Delacruz EO # 0.2 103/ul Normal 0.0-0.7 [facility] Comment on above: Performed By: #### C BC #### [facility] [address] [place] [address] Dr. Rosi Delacruz Eosinophils/100 WBC (Bld) 2.4 % Normal 0.9-7.0 [facility] Comment on above: Performed By: #### C BC #### [facility] [address] [place] [address] Dr. Rosi Delacruz Erythrocyte distribution width (RBC) [Ratio] 13.2 % Normal 11.0-15.0 [facility] Comment on above: Performed By: #### C BC #### [facility] [address] [place] [address] Dr. Rosi Delacruz Hematocrit (Bld) [Volume fraction] 43.4 % Normal 42.0-54.0 [facility] Comment on above: Performed By: #### C BC #### [facility] [address] [place] [address] Dr. Rosi Delacruz Hemoglobin (Bld) [Mass/Vol] 14.0 g/dL Normal 14.0-18.0 [facility] Comment on above: Performed By: #### C BC #### [facility] [address] [place] [address] Dr. Rosi Delacruz IG # 0.02 10e3/ul Normal 0.00-0.03 [facility] Comment on above: Performed By: #### C BC #### [facility] [address] [place] [address] Dr. Rosi Delacruz IG % 0.3 % Normal 0.0-0.5 [facility] Comment on above: Performed By: #### C BC #### [facility] [address] [address] [address] Rosi Delacruz LYMPH # 1.7 103/ul Normal 1.2-3.8 [facility] Comment on above: Performed By: #### C BC #### [facility] [address] [address] [address] Rosi Delacruz Lymphocytes/100 WBC (Bld) 27.3 % Normal 20.5-60.0 [facility] Comment on above: Performed By: #### C BC #### [facility] [address] [place] [address] Dr. Rosi Delacruz MANUAL DIFF REQ NO Normal [facility] Comment on above: Performed By: #### C BC #### [facility] [address] [place] [address] Dr. Rosi Delacruz MCH (RBC) [Entitic mass] 32.5 pg Normal 25.9-34.0 [facility] Comment on above: Performed By: #### C BC #### [facility] [address] [place] [address] Dr. Rosi Delacruz MCHC (RBC) [Mass/Vol] 32.3 g/dL Normal 29.9-35.2 [facility] Comment on above: Performed By: #### C BC #### [facility] [address] [place] [address] Dr. Rosi Delacruz MCV (RBC) [Entitic vol] 100.7 fL Critically high 80.0-94.0 [facility] Comment on above: Performed By: #### C BC #### [facility] [address] [place] [address] Dr. Rosi Delacruz MONO # 0.5 103/ul Normal 0.3-0.8 [facility] Comment on above: Performed By: #### C BC #### [facility] [address] [place] [address] Dr. Rosi Delacruz Monocytes/100 WBC (Bld) 7.6 % Normal 1.7-12.0 [facility] Comment on above: Performed By: #### C BC #### [facility] [address] [address] [address] Rosi Delacruz NEUT # 3.8 103/ul Normal 1.4-6.5 [facility] Comment on above: Performed By: #### C BC #### [facility] [address] [address] [address] Rosi Delacruz Neutrophils/100 WBC (Bld) 61.6 % Normal 43.0-75.0 [facility] Comment on above: Performed By: #### C BC #### [facility] [address] [address] [address] Rosi Delacruz Platelet mean volume (Bld) [Entitic vol] 11.2 fL Normal 9.5-13.5 [facility] Comment on above: Performed By: #### C BC #### [facility] [address] [place] [address] Dr. Rosi Delacruz PLT 198 103/ul Normal 150-450 [facility] Comment on above: Performed By: #### C BC #### [facility] [address] [place] [address] Dr. Rosi Delacruz RBC 4.31 106/ul Critically low 4.70-6.10 [facility] Comment on above: Performed By: #### C BC #### [facility] [address] [place] [address] Dr. Rosi Delacruz WBC 6.2 103/ul Normal 4.0-11.0 [facility] Comment on above: Performed By: #### C BC #### [facility] [address] [place] [address] Dr. Rosi Delacruz LIPID PROFILEon 05-12-2022 CHOL-HDL RATIO NORM SEE BELOW Normal [facility] Comment on above: Result Comment: 3.3 - 4.4 LOW RISK 4.4 - 7.1 AVERAGE RISK 7.1 - 11.0 MODERATE RISK >11.0 HIGH RISK Performed By: #### C MP, T4, LIPID, TSH #### [facility] [address] [place] [address] Dr. Rosi Delacruz Cholesterol [Mass/Vol] 171 mg/dL Normal <=200 [facility] Comment on above: Performed By: #### C MP, T4, LIPID, TSH #### [facility] [address] [address] [address] Rosi Delacruz Cholesterol in HDL [Mass/Vol] 37 mg/dL Critically low 40-60 [facility] Comment on above: Performed By: #### C MP, T4, LIPID, TSH #### [facility] [address] [address] [address] Rosi Delacruz Cholesterol in LDL [Mass/Vol] 106.0 mg/dL Normal [facility] Comment on above: Performed By: #### C MP, T4, LIPID, TSH #### [facility] [address] [address] [address] Rsoi Delacruz Cholesterol.total/Ch olesterol in HDL [Mass ratio] 4.6 {ratio} Normal [facility] Comment on above: Performed By: #### C MP, T4, LIPID, TSH #### [facility] [address] [address] [address] Rosi Delacruz HDL NORMAL > or = 60 mg/dl - LOW CARDIOVASCULAR RISK <40 mg/dl - HIGH CARDIOVASCULAR RISK Normal [facility] Comment on above: Performed By: #### C MP, T4, LIPID, TSH #### [facility] [address] [address] [address] Rosi Delacruz LDL CALC NORMAL SEE BELOW Normal [facility] Comment on above: Result Comment: <100 mg/dl OPTIMAL 100 - 129 mg/dl NEAR OR ABOVE OPTIMAL 130 - 159 mg/dl BORDERLINE HIGH 160 - 189 mg/dl HIGH >190 mg/dl VERY HIGH Performed By: #### C MP, T4, LIPID, TSH #### [facility] [address] [address] [address] Rosi Delacruz Triglyceride [Mass/Vol] 140 mg/dL Normal <=150 [facility] Comment on above: Performed By: #### C MP, T4, LIPID, TSH #### [facility] [address] [address] [address] Rosi Delacruz VLDL CALC 28.0 mg/dL Normal [facility] Comment on above: Performed By: #### C MP, T4, LIPID, TSH #### [facility] [address] [place] [address] Dr. Rosi Delacruz PROF 14(COMP METB)on 023 Albumin [Mass/Vol] 3.8 g/dL Normal 3.4-5.0 [facility] Comment on above: Performed By: #### C MP, T4, LIPID, TSH #### [facility] [address] [place] [address] Dr. Rosi Delacruz Albumin/Globulin [Mass ratio] 1.2 {ratio} Normal [facility] Comment on above: Performed By: #### C MP, T4, LIPID, TSH #### [facility] [address] [place] [address] Dr. Rosi Delacruz ALP [Catalytic activity/Vol] 96 U/L Normal 46-116 [facility] Comment on above: Performed By: #### C MP, T4, LIPID, TSH #### [facility] [address] [place] [address] Dr. Rosi Delacruz ALT [Catalytic activity/Vol] 79 U/L Critically high 16-63 [facility] Comment on above: Performed By: #### C MP, T4, LIPID, TSH #### [facility] [address] [place] [address] Dr. Rosi Delacruz Anion gap [Moles/Vol] 14.4 mmol/L Normal [facility] Comment on above: Performed By: #### C MP, T4, LIPID, TSH #### [facility] [address] [place] [address] Dr. Rosi Delacruz AST [Catalytic activity/Vol] 29 U/L Normal 15-37 [facility] Comment on above: Performed By: #### C MP, T4, LIPID, TSH #### [facility] [address] [place] [address] Dr. Rosi Delacruz Bilirubin [Mass/Vol] 0.4 mg/dL Normal 0.2-1.0 [facility] Comment on above: Performed By: #### C MP, T4, LIPID, TSH #### [facility] [address] [place] [address] Dr. Rosi Delacruz Calcium [Mass/Vol] 8.7 mg/dL Normal 8.5-10.1 [facility] Comment on above: Performed By: #### C MP, T4, LIPID, TSH #### [facility] [address] [address] [address] Rosi Delacruz Chloride [Moles/Vol] 108 mmol/L Critically high 98-107 [facility] Comment on above: Performed By: #### C MP, T4, LIPID, TSH #### [facility] [address] [place] [address] Dr. Rosi Delacruz CO2 [Moles/Vol] 28.1 mmol/L Normal 21.0-32.0 [facility] Comment on above: Performed By: #### C MP, T4, LIPID, TSH #### [facility] [address] [place] [address] Dr. Rosi Delacruz Creatinine [Mass/Vol] 1.02 mg/dL Normal 0.70-1.30 [facility] Comment on above: Performed By: #### C MP, T4, LIPID, TSH #### [facility] [address] [place] [address] Dr. Rosi Delacruz EGFR-AF BULGARIAN >60 Normal >=60 [facility] Comment on above: Performed By: #### C MP, T4, LIPID, TSH #### [facility] [address] [place] [address] Dr. Rosi Delacruz EGFR-NON AF BULGARIAN >60 Normal >=60 [facility] Comment on above: Performed By: #### C MP, T4, LIPID, TSH #### [facility] [address] [place] [address] Dr. Rosi Delacruz Globulin (S) [Mass/Vol] 3.2 g/dL Normal [facility] Comment on above: Performed By: #### C MP, T4, LIPID, TSH #### [facility] [address] [place] [address] Dr. Rosi Delacruz Glucose [Mass/Vol] 113 mg/dL Critically high 74-106 [facility] Comment on above: Performed By: #### C MP, T4, LIPID, TSH #### [facility] [address] [address] [address] Rosi Delacruz Potassium [Moles/Vol] 4.5 mmol/L Normal 3.5-5.1 [facility] Comment on above: Performed By: #### C MP, T4, LIPID, TSH #### [facility] [address] [place] [address] Dr. Rosi Delacruz Protein [Mass/Vol] 7.0 g/dL Normal 6.4-8.2 [facility] Comment on above: Performed By: #### C MP, T4, LIPID, TSH #### [facility] [address] [place] [address] Dr. Rosi Delacruz Sodium [Moles/Vol] 146 mmol/L Critically high 136-145 [facility] Comment on above: Performed By: #### C MP, T4, LIPID, TSH #### [facility] [address] [place] [address] Dr. Rosi Delacruz Urea nitrogen [Mass/Vol] 17.0 mg/dL Normal 7.0-18.0 [facility] Comment on above: Performed By: #### C MP, T4, LIPID, TSH #### [facility] [address] [place] [address] Dr. Rosi Delacruz Urea nitrogen/Creatinine [Mass ratio] 16.7 mg/mg Normal [facility] Comment on above: Performed By: #### C MP, T4, LIPID, TSH #### [facility] [address] [place] [address] Dr. Rosi Delacruz T4on 05-12-2022 T4 [Mass/Vol] 8.20 ug/dL Normal 4.50-12.10 [facility] Comment on above: Performed By: #### C MP, HSTROPN, BNP #### [facility] [address] [place] [address] Dr. Rosi Delacurz TSHon 05-12-2022 TSH 2.270 uIU/mL Normal 0.358-3.740 [facility] Comment on above: Performed By: #### C MP, T4, LIPID, TSH #### [facility] [address] [place] [address] Dr. Rosi Delacruz BNPon 04-24-2022 Natriuretic peptide B (Bld) [Mass/Vol] 14.0 pg/mL Normal <=900.0 [facility] Comment on above: Performed By: #### C MP, HSTROPN, BNP #### [facility] [address] [place] [address] Dr. Rosi Delacruz CBC AUTO DIFFon 04-24-2022 BASO # 0.0 103/ul Normal 0.0-0.1 [facility] Comment on above: Performed By: #### C BC #### [facility] [address] [place] [address] Dr. Rosi Delacruz Basophils/100 WBC (Bld) 0.5 % Normal 0.2-2.0 [facility] Comment on above: Performed By: #### C BC #### [facility] [address] [place] [address] Dr. Rosi Delacruz EO # 0.0 103/ul Normal 0.0-0.7 [facility] Comment on above: Performed By: #### C BC #### [facility] [address] [place] [address] Dr. Rosi Delacruz Eosinophils/100 WBC (Bld) 0.2 % Critically low 0.9-7.0 [facility] Comment on above: Performed By: #### C BC #### [facility] [address] [place] [address] Dr. Rosi Delacruz Erythrocyte distribution width (RBC) [Ratio] 13.0 % Normal 11.0-15.0 [facility] Comment on above: Performed By: #### C BC #### [facility] [address] [place] [address] Dr. Rosi Delacruz Hematocrit (Bld) [Volume fraction] 46.1 % Normal 42.0-54.0 [facility] Comment on above: Performed By: #### C BC #### [facility] [address] [place] [address] Dr. Rosi Delacruz Hemoglobin (Bld) [Mass/Vol] 15.9 g/dL Normal 14.0-18.0 [facility] Comment on above: Performed By: #### C BC #### [facility] [address] [place] [address] Dr. Rosi Delacruz IG # 0.01 10e3/ul Normal 0.00-0.03 [facility] Comment on above: Performed By: #### C BC #### [facility] [address] [place] [address] Dr. Rosi Delacruz IG % 0.2 % Normal 0.0-0.5 [facility] Comment on above: Performed By: #### C BC #### [facility] [address] [place] [address] Dr. Rosi Delacruz LYMPH # 0.9 103/ul Critically low 1.2-3.8 [facility] Comment on above: Performed By: #### C BC #### [facility] [address] [place] [address] Dr. Rosi Delacruz Lymphocytes/100 WBC (Bld) 21.9 % Normal 20.5-60.0 [facility] Comment on above: Performed By: #### C BC #### [facility] [address] [place] [address] Dr. Rosi Delacruz MANUAL DIFF REQ NO Normal [facility] Comment on above: Performed By: #### C BC #### [facility] [address] [place] [address] Dr. Rosi Delacruz MCH (RBC) [Entitic mass] 32.0 pg Normal 25.9-34.0 [facility] Comment on above: Performed By: #### C BC #### [facility] [address] [place] [address] Dr. Rosi Delacruz MCHC (RBC) [Mass/Vol] 34.5 g/dL Normal 29.9-35.2 [facility] Comment on above: Performed By: #### C BC #### [facility] [address] [place] [address] Dr. Rosi Delacruz MCV (RBC) [Entitic vol] 92.8 fL Normal 80.0-94.0 [facility] Comment on above: Performed By: #### C BC #### [facility] [address] [address] [address] Rosi Delacruz MONO # 0.5 103/ul Normal 0.3-0.8 [facility] Comment on above: Performed By: #### C BC #### [facility] [address] [address] [address] Rosi Delacruz Monocytes/100 WBC (Bld) 13.2 % Critically high 1.7-12.0 [facility] Comment on above: Performed By: #### C BC #### [facility] [address] [address] [address] Rosi Delacruz NEUT # 2.6 103/ul Normal 1.4-6.5 [facility] Comment on above: Performed By: #### C BC #### [facility] [address] [place] [address] Dr. Rosi Delacruz Neutrophils/100 WBC (Bld) 64.0 % Normal 43.0-75.0 [facility] Comment on above: Performed By: #### C BC #### [facility] [address] [place] [address] Dr. Rosi Delacruz Platelet mean volume (Bld) [Entitic vol] 11.5 fL Normal 9.5-13.5 [facility] Comment on above: Performed By: #### C BC #### [facility] [address] [place] [address] Dr. Rosi Delacruz PLT 160 103/ul Normal 150-450 [facility] Comment on above: Performed By: #### C BC #### [facility] [address] [place] [address] Dr. Rosi Delacruz RBC 4.97 106/ul Normal 4.70-6.10 [facility] Comment on above: Performed By: #### C BC #### [facility] [address] [place] [address] Dr. Rosi Delacruz WBC 4.0 103/ul Normal 4.0-11.0 [facility] Comment on above: Performed By: #### C BC #### [facility] [address] [place] [address] Dr. Rosi Delacruz D-DIMERon 04-24-2022 D-DIMER <0.19 Normal <=0.59 [facility] Comment on above: Performed By: #### D DIM #### [facility] [address] [place] [address] Dr. Rosi Delacruz D-DIMER COMMENTS SEE BELOW Normal [facility] Comment on above: Result Comment: Incr eases [...] hospitalization. Performed By: #### D DIM #### [facility] [address] [place] [address] Dr. Rosi Delacruz LACTATE/LACTIC ACIDon 2022 Lactate [Moles/Vol] 1.7 mmol/L Normal 0.4-1.9 [facility] Comment on above: Performed By: #### C MP, HSTROPN, BNP #### [facility] [address] [place] [address] Dr. Rosi Delacruz PROF 14(COMP METB)on 023 Albumin [Mass/Vol] 4.1 g/dL Normal 3.4-5.0 [facility] Comment on above: Performed By: #### C MP, HSTROPN, BNP #### [facility] [address] [place] [address] Dr. Rosi Delacruz Albumin/Globulin [Mass ratio] 1.2 {ratio} Normal [facility] Comment on above: Performed By: #### C MP, HSTROPN, BNP #### [facility] [address] [place] [address] Dr. Rosi Delacruz ALP [Catalytic activity/Vol] 96 U/L Normal 46-116 [facility] Comment on above: Performed By: #### C MP, HSTROPN, BNP #### [facility] [address] [address] [address] Rosi Delacruz ALT [Catalytic activity/Vol] 75 U/L Critically high 16-63 [facility] Comment on above: Performed By: #### C MP, HSTROPN, BNP #### [facility] [address] [place] [address] Dr. Rosi Delacruz Anion gap [Moles/Vol] 14.8 mmol/L Normal [facility] Comment on above: Performed By: #### C MP, HSTROPN, BNP #### [facility] [address] [address] [address] Rosi Delacruz AST [Catalytic activity/Vol] 39 U/L Critically high 15-37 [facility] Comment on above: Performed By: #### C MP, HSTROPN, BNP #### [facility] [address] [place] [address] Dr. Rosi Delacruz Bilirubin [Mass/Vol] 0.5 mg/dL Normal 0.2-1.0 [facility] Comment on above: Performed By: #### C MP, HSTROPN, BNP #### [facility] [address] [place] [address] Dr. Rosi Delacruz Calcium [Mass/Vol] 8.9 mg/dL Normal 8.5-10.1 [facility] Comment on above: Performed By: #### C MP, HSTROPN, BNP #### [facility] [address] [address] [address] Rosi Delacruz Chloride [Moles/Vol] 103 mmol/L Normal 98-107 [facility] Comment on above: Performed By: #### C MP, HSTROPN, BNP #### [facility] [address] [place] [address] Dr. Rosi Delacruz CO2 [Moles/Vol] 25.0 mmol/L Normal 21.0-32.0 [facility] Comment on above: Performed By: #### C MP, HSTROPN, BNP #### [facility] [address] [place], [place] [id number] Dr. Rosi Delacruz Creatinine [Mass/Vol] 1.25 mg/dL Normal 0.70-1.30 [facility] Comment on above: Performed By: #### C MP, HSTROPN, BNP #### [facility] [address] [address] [address] Rosi Delacruz EGFR-AF BULGARIAN >60 Normal >=60 [facility] Comment on above: Performed By: #### C MP, HSTROPN, BNP #### [facility] [address] [place] [address] Dr. Rosi Delacruz EGFR-NON AF BULGARIAN 60 mL/min/1.73m2 Normal >=60 [facility] Comment on above: Performed By: #### C MP, HSTROPN, BNP #### [facility] [address] [place] [address] Dr. Rosi Delacruz Globulin (S) [Mass/Vol] 3.4 g/dL Normal [facility] Comment on above: Performed By: #### C MP, HSTROPN, BNP #### [facility] [address] [place] [address] Dr. Rosi Delacruz Glucose [Mass/Vol] 151 mg/dL Critically high 74-106 [facility] Comment on above: Performed By: #### C MP, HSTROPN, BNP #### [facility] [address] [place] [address] Dr. Rosi Delacruz Potassium [Moles/Vol] 3.8 mmol/L Normal 3.5-5.1 [facility] Comment on above: Performed By: #### C MP, HSTROPN, BNP #### [facility] [address] [place] [address] Dr. Rosi Delacruz Protein [Mass/Vol] 7.5 g/dL Normal 6.4-8.2 [facility] Comment on above: Performed By: #### C MP, HSTROPN, BNP #### [facility] [address] [place] [address] Dr. Rosi Delacruz Sodium [Moles/Vol] 139 mmol/L Normal 136-145 [facility] Comment on above: Performed By: #### C MP, HSTROPN, BNP #### [facility] [address] [address] [address] Rosi Delacruz Urea nitrogen [Mass/Vol] 22.0 mg/dL Critically high 7.0-18.0 [facility] Comment on above: Performed By: #### C MP, HSTROPN, BNP #### [facility] [address] [address] [address] Rosi Delacruz Urea nitrogen/Creatinine [Mass ratio] 17.6 mg/mg Normal [facility] Comment on above: Performed By: #### C MP, HSTROPN, BNP #### [facility] [address] [place] [address] Dr. Rosi Delacruz TROPONIN, HIGH SENSITIVITYon 04-24-2022 HSTROP 8.5 pg/mL Normal 4.0-76.1 [facility] Comment on above: Result Comment: CUT- OFF POINTS HAVE BEEN ESTABLISHED BASED ON THE FOURTH UNIVERSAL DEFINITIONS OF MYOCARDIAL INFARCTION. THE UPPER REFERENCE LIMIT (URL) OF TROPONIN, DEFINED THE 99TH PERCENTILE OF cTnI DISTRIBUTION IN A REFERENCE POPULATION, HAS BEEN CONFIRMED THE DECISION THRESHOLD FOR AL DIAGNOSIS. Performed By: #### C MP, HSTROPN, BNP #### [facility] [address] [place] [address] Dr. Rosi Delacruz Vital Signs Date Time Vital Sign Value Performing Clinician [place] 04-25-2024 15:33-0500 Blood Pressure Location Alo DAVE [facility] [place] 04-25-2024 15:33-0500 Diastolic blood pressure 90 mm[Hg] Alo DAVE [facility] [place] 04-25-2024 15:33-0500 Heart rate 72 /min Alo DAVE [facility] [place] 04-25-2024 15:33-0500 Respiratory rate 16 /min Alo DAVE [facility] 04-25-2024 15:33-0500 Systolic blood pressure 142 mm[Hg] Alo NILL [facility] Encounters Encounter Date Encounter Type Care Provider Facility Start: 04-25-2024 End: 04-25-2024 ambulatory IVAN GOLDIE Facility:[facility] Start: 04-25-2024 End: 04-25-2024 Patient encounter procedure Alo Brooke NILL [facility] Start: 04-11-2024 ambulatory [facility] Start: 03-22-2024 ambulatory IVAN GOLDIE Facility:[facility] Start: 05-15-2022 Encounter for genera l adult medical examination without abnormal findings DR BRAXTON BOWLES [facility] Start: 05-12-2022 End: 05-13-[address] BRAXTON BOWLES Facility:[facility] Start: 05-12-2022 End: 05-13-2022 Encounter for general adult medical examination without abnormal findings DR BRAXTON BOWLES Facility:[facility] Start: 04-24-2022 End: 04-24-[address] BRAXTON BOWLES Facility:[facility] Procedures Date Procedure Procedure Detail Performing Clinician Start: 05-12-[address] RICARDO BOWLES Comment on above: Performed By: #### P SAD #### [facility] [address] [place] [address] Dr. Rosi Delacruz Arthroscopy of shoulder Martin aeargelia NILL Cholecystectomy Alo NILL Colonoscopy Alo NILL Vasectomy Alo NILL Immunizations Immunization Date Immunization Notes Care Provider Fa gaby 03-10-2021 SARS-CoV-2 (COVID-19 ) mRNA BNT-162b2 vax Alo NILL [facility] 07-22-2020 SARS-CoV-2 (COVID-19 ) mRNA BNT-162b2 vax Alo NILL [facility] [place] 06-30-2020 SARS-CoV-2 (COVID-19 ) mRNA BNT-162b2 eugene DAVE [facility] [place] Payers Date Payer Category Payer Unknown [id number] 1965 Unknown [id number] 1965 Unknown [id number] 1959 Unknown [id number] Unknown [id number] Social History Date Type Detail Facility Start: 04-25-2024 Tobacco smoking status Ex-smoker (fi nding) [facility] Tobacco smoking status Never Fishe [facility] [place] Sex Assigned At Male [facility] Functional Status Date Assessment Result Facility 04-25-2024 Functional Status N/A [facility] [place] Clinical Note 04-25-2024 Note Date & Type [...] SARS-CoV-2 (COVID-19) mRNA BNT-162b2 vax 06/30/2020 Recorded [facility] Comment on above: Result Comment: Elec tronically Signed By: TENZIN MAGALLON, Alo Charles\Date and Time Signed: 04/25/24 16:02 EST Evaluation + Plan note Note Date & Type Note Facility Evaluation + Plan note No data available for this section [facility] [place] [facility] Discharge instructions Note Date & Type Note Facility Hospital Discharge instructions No data available for this section [facility] [place] Progress note Note Date & Type Note Facility Progress note No data available for this section [facility] [place] Summary Purpose Family History No Family History [...] DATE CREATED AUTHOR AUTHOR'S ORGANIZ ATION 04/28/2024 [facility] Patient Care team informatio n (unrecognized section and content) Personnel Name: IVAN WITT Address: Address: [address] [place] [address] [place] [address] FOR RECORDS PERTAINING TO PATIENTS WHO ARE [...] BE BASED ON THE PRIMARY CLINICAL RECORDS. [facility]. provides no warranty or guarantee of the accuracy or completeness of information in this document.
[2024-05-16] MEDS: LACTATED RINGER'S SOLUTION 1,000 ML 50 ML IV (08:50)
[2024-05-16] MEDS: CEFAZOLIN SODIUM 2 GM/50 ML D5W PREMIX IV (08:51)
[2024-05-16] MEDS: BUPIVACAINE HCL 0.5% PF 50 MG/10 ML VIAL 20 ML INJ (10:01)
--- NOTE | 2024-05-16 11:02 | PC.NURSE ---
Instructed on use of PEP device and demonstrates correctly.
== END 2024-05-16 11:32 | disposition home or self-care (01) ==
PROVIDERS: Visit Provider Surgery
PROC: (CPT 21933; principal; 2024-05-16 10:05)
DX: D17.9 Benign lipomatous neoplasm, unspecified (principal); I10 Essential (primary) hypertension; Z90.49 Acquired absence of other specified parts of digestive tract; Z98.52 Vasectomy status; Z87.891 Personal history of nicotine dependence; K44.9 Diaphragmatic hernia without obstruction or gangrene; K21.9 Gastro-esophageal reflux disease without esophagitis
CPT/HCPCS: 21933; 36415; 88304; J0665; J0690; J1100; J1171; J1885; J2250; J2405; J2704; J3010